=== PATIENT | male | born 1955 | race Hispanic/Latino ===

== ENCOUNTER 2017-02-18 08:42 | Inpatient (IN) | payer MEDICAID, OTHER ==
[2017-02-18] MEDS ORDERED: Albuterol-Ipratrop 3 mg / 0.5 (3 ml) UD ONE (08:52)
[2017-02-18] MEDS ORDERED: Albuterol 0.083% Inhal Sol (2.5 mg/3 mL) UD INH STA (09:37)
[2017-02-18] MEDS ORDERED: Albuterol-Ipratrop 3 mg / 0.5 (3 ml) UD INH STA ×2 (09:38→10:01)
[2017-02-18 09:59] LABS: ABG ALLEN TEST YES; ARTERIAL BLOOD GAS HCO3 28.5 mmol/L (21-28); ARTERIAL BLOOD GAS HEMOGLOBIN 17.5 g/dL (11.7-17.4); ARTERIAL BLOOD GAS O2 CAPACITY 22.7 mL/dL (16-24); ARTERIAL BLOOD GAS O2 CONTENT 21.1 ML/dL (15-23); ARTERIAL BLOOD GAS O2 SAT 93.1 % (95-98); ARTERIAL BLOOD GAS PCO2 51 mm/Hg (35-45); ARTERIAL BLOOD GAS PO2 56 mm/Hg (80-100); ARTERIAL BLOOD GAS TCO2 33.2 mmol/L (22-28)
[2017-02-18 10:02] LABS: VENOUS BLOOD GAS BASE EXCESS 6.9 mmol/L (0.0-2.0); VENOUS BLOOD GAS PCO2 69 mmHg (40-60); VENOUS BLOOD GAS PO2 19 mm/Hg (30-55); VENOUS BLOOD PH 7.33 (7.32-7.43)
[2017-02-18 10:07] LABS: BASO % 0.2 % (0.0-2.0); EOS # 0.2 K/uL (0.0-0.7); EOS % 2.8 % (0.0-4.0); LYMPH # 0.7 K/uL (1.0-4.3); LYMPH % 10.2 % (20.0-40.0); MEAN CELL VOLUME 97.4 fl (80.0-94.0); MEAN CORPUSCULAR HEMOGLOBIN 32.8 pg (27.0-31.0); MEAN CORPUSCULAR HGB CONC 33.7 g/dL (33.0-37.0); MEAN PLATELET VOLUME 9.7 fl (7.2-11.7); MONO # 0.8 K/uL (0.0-0.8); MONO % 12.3 % (0.0-10.0); NEUT # 5.1 K/uL (1.8-7.0); NEUT % 74.5 % (50.0-75.0); NRBC % 0.2 % (0.0-0.0); RBC 5.21 Mil/uL (4.40-5.90); RED CELL DISTRIBUTION WIDTH 14.4 % (11.5-14.5); WHITE BLOOD COUNT 6.9 K/uL (4.8-10.8)
[2017-02-18 10:08] LABS: BLOOD UREA NITROGEN 4 mg/dl (9-20); CALCIUM 9.2 mg/dL (8.4-10.2); GFR AFRICAN-AMERICAN > 60; GFR NON-AFRICAN AMERICAN > 60
[2017-02-18 10:11] LABS: HEMOGLOBIN 17.1 g/dL (12.0-18.0)
[2017-02-18 10:29] LABS: B-TYPE NATRIURETIC PEPTIDE 342 pg/ml (0-900)
--- NOTE | 2017-02-18 10:59 | ED PDOC ---
HPI: SOB/CHF/COPD Time Seen by Provider: 02/18/17 09:07 Chief Complaint (Nursing): Shortness Of Breath Chief Complaint (Provider): Difficulty Breathing History Per: Patient History/Exam Limitations: no limitations Onset/Duration Of Symptoms: Days, Worse Since Current Symptoms Are (Timing): Still Present Initiating Event: Out Of Medications Associated Symptoms: denies: Fever, Chest Pain Additional Complaint(s): 61 year old male with a past medical history of asthma, pneumonia and bronchitis presents to the ED complaining of difficulty breathing which has been on going for a few days. The patient states that he has also been experiencing shortness of breath associated with cough productive of yellow sputum. The patient states that he does not have any medication because he ran out and he has been unable to visit his PMD. Denies chest pain, fever. Past Medical History Reviewed: Historical Data, Nursing Documentation, Vital Signs Vital Signs: Last Vital Signs Temp 98.3 F 02/19/17 08:00 Pulse 62 02/19/17 08:00 Resp 12 02/19/17 08:00 BP 116/48 L 02/19/17 08:00 Pulse Ox 93 L 02/19/17 10:01 - Medical History PMH: Asthma, Bronchitis, Hiatal Hernia (inguinal), Pneumonia Denies: Chronic Kidney Disease - Surgical History Surgical History: Hernia Repair - Family History Family History: States: Unknown Family Hx - Social History Current smoker - smoking cessation education provided: Yes (Heavy Smoker > 10 Cigarettes Daily) Alcohol: Social - Immunization History Hx Tetanus Toxoid Vaccination: No Hx Influenza Vaccination: No Hx Pneumococcal Vaccination: No - Home Medications Home Medications: Ambulatory Orders Medication Instructions Recorded No Known Home Med 02/18/17 - Allergies Allergies/Adverse Reactions: Allergies Allergy/AdvReac Type Severity Reaction Status Date / Time Penicillins Allergy RASH Verified 02/18/17 08:48 Review of Systems ROS Statement: Except As Marked, All Systems Reviewed And Found Negative Constitutional: Negative for: Fever Cardiovascular: Negative for: Chest Pain Respiratory: Positive for: Shortness of Breath, Other (difficulty breathing) Physical Exam - Reviewed Nursing Documentation Reviewed: Yes Vital Signs Reviewed: Yes - Physical Exam Appears: Positive for: Non-toxic, Uncomfortable Head Exam: Positive for: ATRAUMATIC, NORMAL INSPECTION Skin: Positive for: Normal Color, Warm, Dry. Negative for: Rash Eye Exam: Positive for: Normal appearance, EOMI, PERRL. Negative for: Nystagmus ENT: Positive for: Normal ENT Inspection Neck: Positive for: Normal, Painless ROM, Supple Cardiovascular/Chest: Positive for: Regular Rate, Rhythm, Tachycardia Respiratory: Positive for: Accessory Muscle Use, Wheezing, Respiratory Distress. Negative for: Normal Breath Sounds Gastrointestinal/Abdominal: Positive for: Normal Exam, Bowel Sounds, Soft, Hernia (small right inguinal hernia soft and reducible ). Negative for: Tenderness, Guarding, Rebound Back: Positive for: Normal Inspection. Negative for: L CVA Tenderness, R CVA Tenderness Extremity: Positive for: Normal ROM. Negative for: Tenderness, Deformity, Swelling Neurologic/Psych: Positive for: Alert, Oriented - Laboratory Results Result Diagrams: 02/19/17 05:20 02/19/17 05:20 - ECG O2 Sat by Pulse Oximetry: 93 (RA) Pulse Ox Interpretation: Normal - Progress Re-evaluation Time: 11:15 Condition: Re-examined, Improving,but remains with symptoms - Critical Care Total Time (In Min): 120 Nebulizer Treatments/Peak Flow - Duonebs Number of Bronchodilator Doses given?: 3 - Steroid Treatment Steroid: IV - Clinical Response Clinical Response: Unchanged Medical Decision Making Medical Decision Makin Initial Impression 61 y/o male presenting with COPD Exacerbation Differential: Pneumonia, CHF less likely acute coronary syndrome Initial Plan: * ABG * VBG Shock Panel * CT w/o Contrast CT * Chest w/o Contrast * EKG * Alcohol Serum * BNP * BMP * Troponin * CBC * chest x-ray * Albuterol 3ml INH * Albuterol 2.5m INH * Solumedrol 125mg IVP * Blood Culture * Bipap Procedure * Reevaluation 1045 Xray performed significant for left sided pneumothorax. Case discussed with Dr. Bonilla and director surgical for chest tube placement. Dr. Bonilla is requesting CT chest prior to chest tube 1105 administration vice president at bedside. 1126 PROCEDURE: CT Chest without contrast FINDINGS: LUNGS: Extensive bilateral emphysema with large left apical bullae. Lingular atelectasis. Left lower lobe atelectasis and patchy consolidations. MEDIASTINUM: Mild rightward mediastinal shift. Unremarkable thoracic aorta. No aneurysm. Normal sized heart. Main pulmonary artery unremarkable. No vascular congestion. No lymphadenopathy. PLEURA: Very large left pneumothorax. No pleural fluid. BONES: No fracture. No destructive lesion. UPPER ABDOMEN: Grossly unremarkable. OTHER FINDINGS: None. IMPRESSION: Very large left pneumothorax, possibly from ruptured bulla, causing mild rightward mediastinal shift. Lingula and left lower lobe atelectasis with patchy left lower lobe consolidations. Findings conveyed to Dr. Guerrero by Dr. Cedeño at 11:20 a.m. on 02/18/2017. Chest tube placed by director surgical see note. 1140 PROCEDURE: CHEST RADIOGRAPH HISTORY: dyspnea COMPARISON: Chest radiograph dated 03/08/2014. FINDINGS: LUNGS: Left apical bullous change. Left upper and lower lobe atelectasis. PLEURA: Large left pneumothorax. CARDIOVASCULAR: Normal. OSSEOUS STRUCTURES: Unchanged. VISUALIZED UPPER ABDOMEN: Normal. OTHER FINDINGS: None. IMPRESSION: Large left pneumothorax. At the time of this dictation, a CT scan of the chest had already been performed. 1130 Dr. Pan mailing machine helper agrees with admission at this time. Patient will be admitted under [facility]. [address] Marquez concerning case for COPD and pneumothorax. 1245 Xray reviewed after chest tube placement shows resolution of pneumothorax with tube in correct location. Documented by Lesly Estrada acting as a scribe for Deb Guerrero MD. All medical record entries made by the Scribe were at my direction and personally dictated by me. I have reviewed the chart and agree that the record accurately reflects my personal performance of the history, physical exam, medical decision making, and the department course for this patient. I have also personally directed, reviewed, and agree with the discharge instructions and disposition. Disposition - Clinical Impression Clinical Impression: Pneumothorax, COPD (chronic obstructive pulmonary disease), Alcohol abuse, Homelessness - Patient ED Disposition Is Patient to be Admitted: Yes Discussed With : Arlen Flores Doctor Will See Patient In The: ED Counseled Patient/Family Regarding: Studies Performed, Diagnosis - Disposition Disposition Time: 11:36 Condition: GUARDED - Pt Status Changed To: Hospital Disposition Of: Inpatient - Admit Certification Admit to Inpatient:: After my assessment, the patient will require hospitalization for at least two midnights. This is because of the severity of symptoms shown, intensity of services needed, and/or the medical risk in this patient being treated as an outpatient. - POA Present On Arrival: None
[2017-02-18] MEDS ORDERED: Lidocaine 1% Inj (20ml) IJ ONE (11:28)
--- NOTE | 2017-02-18 11:28 | CT ---
PROCEDURE: CT Chest without contrast HISTORY: dyspnea pneumothorax COMPARISON: Correlations made to chest radiograph performed earlier the same day. TECHNIQUE: Contiguous axial images were obtained through the chest without intravenous contrast enhancement. Sagittal and coronal reconstructions were performed. Radiation dose (DLP): 402 mGy-cm. This CT exam was performed using one or more of the following dose reduction techniques: Automated exposure control, adjustment of the mA and/or kV according to patient size, and/or use of iterative reconstruction technique. FINDINGS: LUNGS: Extensive bilateral emphysema with large left apical bullae. Lingular atelectasis. Left lower lobe atelectasis and patchy consolidations. MEDIASTINUM: Mild rightward mediastinal shift. Unremarkable thoracic aorta. No aneurysm. Normal sized heart. Main pulmonary artery unremarkable. No vascular congestion. No lymphadenopathy. PLEURA: Very large left pneumothorax. No pleural fluid. BONES: No fracture. No destructive lesion. UPPER ABDOMEN: Grossly unremarkable. OTHER FINDINGS: None. IMPRESSION: Very large left pneumothorax, possibly from ruptured bulla, causing mild rightward mediastinal shift. Lingula and left lower lobe atelectasis with patchy left lower lobe consolidations. Findings conveyed to Dr. Guerrero by Dr. Cedeño at 11:20 a.m. on 02/18/2017.
[2017-02-18] MEDS ORDERED: levoFLOXacin 750 mg in D5W 750 MG/150 ML BAG IVPB STA (11:31)
[2017-02-18] MEDS ORDERED: Povidone Iodine Topical 10% Sol ONE (11:39)
--- NOTE | 2017-02-18 11:42 | RAD ---
PROCEDURE: CHEST RADIOGRAPH, 1 VIEW HISTORY: dyspnea COMPARISON: Chest radiograph dated 03/08/2014. FINDINGS: LUNGS: Left apical bullous change. Left upper and lower lobe atelectasis. PLEURA: Large left pneumothorax. CARDIOVASCULAR: Normal. OSSEOUS STRUCTURES: Unchanged. VISUALIZED UPPER ABDOMEN: Normal. OTHER FINDINGS: None. IMPRESSION: Large left pneumothorax. At the time of this dictation, a CT scan of the chest had already been performed.
[2017-02-18] MEDS ORDERED: Morphine 4 MG/ML VIAL ONE (12:00)
[2017-02-18] MEDS ORDERED: Morphine 4 MG/ML VIAL IVP ONE (12:00)
[2017-02-18] MEDS ORDERED: levoFLOXacin 750 mg in D5W 750 MG/150 ML BAG IVPB ONE (12:27)
--- NOTE | 2017-02-18 12:48 | CP.PCM.CON ---
History of Present Illness - History of Present Illness History of Present Illness: Cardiothoracic Surgery Consult Note For Dr. Bonilla This 61M with a PMH of COPD, Polysubstance Abuse, Ethanolism, presents with a 2 day history of Left sided chest pain and SOB. In the ED pt had a CXR significant for a large pneumothorax, in the ED pt had a CT Chest significant for left sided lung blebs and a roughly 70% pneumothorax, with minimal tension. Pts HR 100+ , saturations <85. Decision was made to place a bedside chestube. The risks vs benefits were discussed with the patient and he consented to a chest tube. PMHx: Asthma, PVD PSHx: Right inguinal hernia repair (2014) Allergies: Penicillin Meds: None Family Hx: unknown as per patient Social Hx: Daily drinker, Tobacco use 3 PPD history since age 22. Reports history of IVDA. Review of Systems - Review of Systems All systems: reviewed and no additional remarkable complaints except - Cardiovascular Cardiovascular: Chest Pain, Dyspnea - Respiratory Respiratory: Dyspnea, Pain on Inspiration, Pain with Coughing Past Patient History - Infectious Disease Hx of Infectious Diseases: None - Tetanus Immunizations Tetanus Immunization: Unknown - Past Medical History & Family History Past Medical History?: Yes - Past Social History Alcohol: Social - CARDIAC Hx Cardiac Disorders: No - PULMONARY Hx Asthma: Yes Hx Bronchitis: Yes Hx Pneumonia: Yes - NEUROLOGICAL Hx Neurological Disorder: No - HEENT Hx HEENT Problems: No - RENAL Hx Chronic Kidney Disease: No - ENDOCRINE/METABOLIC Hx Endocrine Disorders: No - HEMATOLOGICAL/ONCOLOGICAL Hx Blood Disorders: No - INTEGUMENTARY Hx Dermatological Problems: No - MUSCULOSKELETAL/RHEUMATOLOGICAL Hx Musculoskeletal Disorders: No Hx Falls: No - GASTROINTESTINAL Hx Gastrointestinal Disorders: Yes - GENITOURINARY/GYNECOLOGICAL Hx Genitourinary Disorders: Yes (inguinal hernia) - PSYCHIATRIC Hx Psychophysiologic Disorder: Yes (etoh abuse) Hx Substance Use: Yes (drug user 5 years ago; denies using drugs now) - SURGICAL HISTORY Hx Surgeries: Yes Hx Herniorrhaphy: Yes (2005; 02/2014 right inguinal hernia reduction/repair with mesh) - ANESTHESIA Hx Anesthesia: Yes Hx Anesthesia Reactions: No Hx Malignant Hyperthermia: No Meds Allergies/Adverse Reactions: Allergies Allergy/AdvReac Type Severity Reaction Status Date / Time Penicillins Allergy RASH Verified 02/18/17 08:48 - Medications Medications: Current Medications Levofloxacin/Dextrose (Levaquin 750mg) 750 mg in 150 mls @ 100 mls/hr IVPB STAT STA PRN Reason: Protocol Stop: 02/18/17 13:00 Last Admin: 02/18/17 12:27 Dose: 100 mls/hr Physical Exam - Constitutional Appears: Non-toxic - Head Exam Head Exam: NORMAL INSPECTION - Eye Exam Eye Exam: EOMI - ENT Exam ENT Exam: Mucous Membranes Moist Additional comments: poor dentition - Neck Exam Additional comments: No tracheal deviation noted - Respiratory Exam Additional comments: Decreased left sided breath sounds - Cardiovascular Exam Cardiovascular Exam: Tachycardia, REGULAR RHYTHM - GI/Abdominal Exam GI & Abdominal Exam: Soft Results - Vital Signs Recent Vital Signs: Last Vital Signs Temp 98.6 F 02/18/17 12:41 Pulse 66 02/18/17 12:41 Resp 18 02/18/17 12:41 BP 135/68 02/18/17 12:41 Pulse Ox 93 L 02/18/17 12:41 - Labs Result Diagrams: 02/18/17 09:50 02/18/17 09:50 Labs: Laboratory Results - last 24 hr 02/18/17 02/18/17 02/18/17 09:44 09:44 09:50 WBC RBC Hgb Hct MCV MCH MCHC RDW Plt Count MPV Neut % (Auto) Lymph % (Auto) [place] % (Auto) Eos % (Auto) Baso % (Auto) Neut # Lymph # [place] # Eos # Baso # pCO2 51 H pO2 56 L 19 L HCO3 28.5 H ABG pH 7.40 ABG Total CO2 33.2 H ABG O2 Saturation 93.1 L ABG O2 Content 21.1 ABG Base Excess 5.1 H ABG Hemoglobin 17.5 H ABG Carboxyhemoglobin 5.4 H POC ABG HHb (Measured) 6.4 H ABG Methemoglobin 2.1 ABG O2 Capacity 22.7 Tone Test Yes VBG pH 7.33 VBG pCO2 69 H* VBG HCO3 28.0 VBG Total CO2 38.5 H VBG O2 Sat (Calc) 37.7 L VBG Base Excess 6.9 H VBG Potassium 5.3 H A-a O2 Difference 94.0 109.0 Hgb O2 Saturation 86.1 L Sodium 132.0 130 L Chloride 92.0 L 92 L Glucose 146 H Lactate 1.7 Liter Flow 3 FiO2 30.0 30.0 Blood Gas Comments 3l/m nc,rb 3l, nc Crit Value Called To Kelsie lawrence Crit Value Called By 15 Crit Value Read Back Y Blood Gas Notified Time 1010 Potassium 4.3 Carbon Dioxide 31 H Anion Gap 11 BUN 4 L Creatinine 0.6 L Est GFR ( Amer) > 60 Est GFR (Non-Af Amer) > 60 Random Glucose 136 H Calcium 9.2 Troponin I NT-Pro-B Natriuret Pep Venous Blood Potassium 5.3 H Alcohol, Quantitative < 10 02/18/17 02/18/17 09:50 10:03 WBC 6.9 RBC 5.21 Hgb 17.1 D Hct 50.8 MCV 97.4 H D MCH 32.8 H MCHC 33.7 RDW 14.4 Plt Count 222 MPV 9.7 Neut % (Auto) 74.5 Lymph % (Auto) 10.2 L [place] % (Auto) 12.3 H Eos % (Auto) 2.8 Baso % (Auto) 0.2 Neut # 5.1 Lymph # 0.7 L [place] # 0.8 Eos # 0.2 Baso # 0.0 pCO2 pO2 HCO3 ABG pH ABG Total CO2 ABG O2 Saturation ABG O2 Content ABG Base Excess ABG Hemoglobin ABG Carboxyhemoglobin POC ABG HHb (Measured) ABG Methemoglobin ABG O2 Capacity Tone Test VBG pH VBG pCO2 VBG HCO3 VBG Total CO2 VBG O2 Sat (Calc) VBG Base Excess VBG Potassium A-a O2 Difference Hgb O2 Saturation Sodium Chloride Glucose Lactate Liter Flow FiO2 Blood Gas Comments Crit Value Called To Crit Value Called By Crit Value Read Back Blood Gas Notified Time Potassium Carbon Dioxide Anion Gap BUN Creatinine Est GFR ( Amer) Est GFR (Non-Af Amer) Random Glucose Calcium Troponin I < 0.0120 NT-Pro-B Natriuret Pep 342 Venous Blood Potassium Alcohol, Quantitative Assessment & Plan - Assessment and Plan (Free Text) Assessment: 61M with tension pneumothorax s/p left chest tube placement Lung Expanded Keep Pleurovac on suction Daily CXR OK to use positive pressure Discuss with Dr. Irene Sutherland PGY2
--- NOTE | 2017-02-18 13:03 | PCM.PROC ---
Procedures Attestation:: I certify that I have explained the specified Operation(s) or Procedure(s), risks, benefits and reasonable alternatives to the Patient and/or other person responsible. The opportunity was given to ask questions and all questions answered - Chest Tube Chest Tube Location: Mid-Axillary Left Size of Tube (cm): 28 Chest Tube Procedure: Povidone-Iodine 1% Tube Sutured to Skin: Yes Sterile Dressing Applied: Yes Anesthesia: Lidocaine 1% Volume Anesthetic (mls): 15 Incision Made With: other (#15 Blade) Post Procedure: sutured to skin, sterile dressing applied [place]vert of Air [place]: Yes Tube Drainage: none Post Procedure CXR?: Yes Patient Tolerated Procedure: Yes
--- NOTE | 2017-02-18 13:21 | CP.PCM.HP ---
<Alanna Morrell - Last Filed: 02/18/17 15:39> History of Present Illness - History of Present Illness History of Present Illness: Pt is a 61 year old male with PMH COPD,emphysema, polysubstance abuse, noncompliance with medication, homelessness presented to the ED with 2 days duration worsening shortness of breath and left sided chest pain/discomfort. No fevers, no coughing up blood or sputum. Was found to have a left sided pneumothorax on CXR and Chest CT. PCP: [facility], last visit 04/2016 PMH: COPD, polysubstance abuse Surg hx: bilateral inguinal hernia repair Family hx: pt is unable to contribute, unknown Social hx: 1-3 ppd smoker for over 20 yrs, drinks half a bottle to bottle of wine per day, hx of IV drug abuse but denies at this time Allergies: penicillin ED course: 125 mg IVP methylprednisone Duonebs x2 levofloxacin 750 mg x1 CXR: large left pneumothorax Chest CT: very large left pneumothorax, possibly from ruptured bulla, causing mild rightward mediastinal shift. Lingula and left lower lobe atelectasis with patchy left lower lobe consolidations. Chest Tube placement in ED by general surgery Repeat CXR done in ED showed re-expansion of left lung with patchy atelectasis/ infiltrate at left base. Present on Admission - Present on Admission Any Indicators Present on Admission: No Review of Systems - Review of Systems All systems: reviewed and no additional remarkable complaints except - Respiratory Respiratory: Dyspnea Past Patient History - Infectious Disease Hx of Infectious Diseases: None - Tetanus Immunizations Tetanus Immunization: Unknown - Past Medical History & Family History Past Medical History?: Yes - Past Social History Smoking Status: Heavy Smoker > 10 Cigarettes Daily Alcohol: Social Drugs: Denies, Other (history of IV drug abuse) Home Situation {Lives}: Homeless - CARDIAC Hx Cardiac Disorders: No - PULMONARY Hx Asthma: Yes Hx Bronchitis: Yes Hx Pneumonia: Yes - NEUROLOGICAL Hx Neurological Disorder: No - HEENT Hx HEENT Problems: No - RENAL Hx Chronic Kidney Disease: No - ENDOCRINE/METABOLIC Hx Endocrine Disorders: No - HEMATOLOGICAL/ONCOLOGICAL Hx Blood Disorders: No - INTEGUMENTARY Hx Dermatological Problems: No - MUSCULOSKELETAL/RHEUMATOLOGICAL Hx Musculoskeletal Disorders: No Hx Falls: No - GASTROINTESTINAL Hx Gastrointestinal Disorders: Yes - GENITOURINARY/GYNECOLOGICAL Hx Genitourinary Disorders: Yes (inguinal hernia) - PSYCHIATRIC Hx Psychophysiologic Disorder: Yes (etoh abuse) Hx Substance Use: Yes (drug user 5 years ago; denies using drugs now) - SURGICAL HISTORY Hx Surgeries: Yes Hx Herniorrhaphy: Yes (2005/; 02/2014 right inguinal hernia reduction/repair with mesh) - ANESTHESIA Hx Anesthesia: Yes Hx Anesthesia Reactions: No Hx Malignant Hyperthermia: No Meds Allergies/Adverse Reactions: Allergies Allergy/AdvReac Type Severity Reaction Status Date / Time Penicillins Allergy RASH Verified 02/18/17 08:48 Physical Exam - Constitutional Appears: Unkempt, Cachectic - Head Exam Head Exam: NORMOCEPHALIC - Eye Exam Eye Exam: EOMI - Neck Exam Neck exam: Positive for: Normal Inspection. Negative for: Lymphadenopathy - Respiratory Exam Respiratory Exam: Decreased Breath Sounds, Rhonchi Additional comments: coarse breath sounds/rhonchi over left hemithorax clearer breath sounds, but mild wheezing present over right hemithorax - Cardiovascular Exam Cardiovascular Exam: +S1, +S2 - GI/Abdominal Exam GI & Abdominal Exam: Normal Bowel Sounds, Soft - Extremities Exam Extremities exam: Negative for: calf tenderness, pedal edema - Neurological Exam Neurological exam: Alert - Skin Skin Exam: Normal Color, Warm Results - Vital Signs Recent Vital Signs: Last Vital Signs Temp 98.6 F 02/18/17 12:41 Pulse 66 02/18/17 12:41 Resp 18 02/18/17 12:41 BP 135/68 02/18/17 12:41 Pulse Ox 93 L 02/18/17 12:45 - Labs Result Diagrams: 02/18/17 09:50 02/18/17 09:50 Labs: Laboratory Results - last 24 hr 02/18/17 02/18/17 02/18/17 09:44 09:44 09:50 WBC RBC Hgb Hct MCV MCH MCHC RDW Plt Count MPV Neut % (Auto) Lymph % (Auto) [place] % (Auto) Eos % (Auto) Baso % (Auto) Neut # Lymph # [place] # Eos # Baso # pCO2 51 H pO2 56 L 19 L HCO3 28.5 H ABG pH 7.40 ABG Total CO2 33.2 H ABG O2 Saturation 93.1 L ABG O2 Content 21.1 ABG Base Excess 5.1 H ABG Hemoglobin 17.5 H ABG Carboxyhemoglobin 5.4 H POC ABG HHb (Measured) 6.4 H ABG Methemoglobin 2.1 ABG O2 Capacity 22.7 Tone Test Yes VBG pH 7.33 VBG pCO2 69 H* VBG HCO3 28.0 VBG Total CO2 38.5 H VBG O2 Sat (Calc) 37.7 L VBG Base Excess 6.9 H VBG Potassium 5.3 H A-a O2 Difference 94.0 109.0 Hgb O2 Saturation 86.1 L Sodium 132.0 130 L Chloride 92.0 L 92 L Glucose 146 H Lactate 1.7 Liter Flow 3 FiO2 30.0 30.0 Blood Gas Comments 3l/m nc,rb 3l, nc Crit Value Called To Kelsie lawrence Crit Value Called By 15 Crit Value Read Back Y Blood Gas Notified Time 1010 Potassium 4.3 Carbon Dioxide 31 H Anion Gap 11 BUN 4 L Creatinine 0.6 L Est GFR ( Amer) > 60 Est GFR (Non-Af Amer) > 60 Random Glucose 136 H Calcium 9.2 Troponin I NT-Pro-B Natriuret Pep Venous Blood Potassium 5.3 H Alcohol, Quantitative < 10 02/18/17 02/18/17 09:50 10:03 WBC 6.9 RBC 5.21 Hgb 17.1 D Hct 50.8 MCV 97.4 H D MCH 32.8 H MCHC 33.7 RDW 14.4 Plt Count 222 MPV 9.7 Neut % (Auto) 74.5 Lymph % (Auto) 10.2 L [place] % (Auto) 12.3 H Eos % (Auto) 2.8 Baso % (Auto) 0.2 Neut # 5.1 Lymph # 0.7 L [place] # 0.8 Eos # 0.2 Baso # 0.0 pCO2 pO2 HCO3 ABG pH ABG Total CO2 ABG O2 Saturation ABG O2 Content ABG Base Excess ABG Hemoglobin ABG Carboxyhemoglobin POC ABG HHb (Measured) ABG Methemoglobin ABG O2 Capacity Tone Test VBG pH VBG pCO2 VBG HCO3 VBG Total CO2 VBG O2 Sat (Calc) VBG Base Excess VBG Potassium A-a O2 Difference Hgb O2 Saturation Sodium Chloride Glucose Lactate Liter Flow FiO2 Blood Gas Comments Crit Value Called To Crit Value Called By Crit Value Read Back Blood Gas Notified Time Potassium Carbon Dioxide Anion Gap BUN Creatinine Est GFR ( Amer) Est GFR (Non-Af Amer) Random Glucose Calcium Troponin I < 0.0120 NT-Pro-B Natriuret Pep 342 Venous Blood Potassium Alcohol, Quantitative Assessment & Plan - Assessment and Plan (Free Text) Assessment: 61 yo M with hx COPD admitted for large left sided pneumothorax. Plan: 1) Left-sided Pneumothorax -Admit to ICU -Seen on Chest CT and CXR done in ED -General Surg consult, left sided chest tube placed in ED -Repeat CXR done in ED showed re-expansion of left lung with patchy atelectasis/ infiltrate at left base -Pulmonology consult -repeat ABG today -Repeat CXR tomorrow -Morphine 2mg PRN -F/u CBC, CMP 2) COPD exacerbation -S/p 125 mg methylprednisone in ED -Duonebs Q4 PRN 3) Infiltrates at left lung base -Levofloxacin 750 mg daily -Procalcitonin pending 3) DVT prophylaxis -SCD <Zakia Walker - Last Filed: 02/19/17 12:11> Results - Vital Signs Recent Vital Signs: Last Vital Signs Temp 98.3 F 02/19/17 08:00 Pulse 56 L 02/19/17 10:00 Resp 19 02/19/17 10:00 BP 110/77 02/19/17 10:00 Pulse Ox 93 L 02/19/17 10:02 - Labs Result Diagrams: 02/19/17 05:20 02/19/17 05:20 Labs: Laboratory Results - last 24 hr 02/18/17 02/18/17 02/18/17 14:48 16:59 18:51 WBC RBC Hgb Hct MCV MCH MCHC RDW Plt Count MPV Neut % (Auto) Lymph % (Auto) [place] % (Auto) Eos % (Auto) Baso % (Auto) Neut # Lymph # [place] # Eos # Baso # pCO2 57 H pO2 80 HCO3 28.5 H ABG pH 7.36 ABG Total CO2 33.9 H ABG O2 Saturation 97.6 ABG O2 Content 21.0 ABG Base Excess 4.8 H ABG Hemoglobin 15.9 ABG Carboxyhemoglobin 2.7 H POC ABG HHb (Measured) 2.3 ABG Methemoglobin 1.3 ABG O2 Capacity 21.5 Tone Test Yes A-a O2 Difference 562.0 Hgb O2 Saturation 93.7 L FiO2 100.0 Sodium Potassium Chloride Carbon Dioxide Anion Gap BUN Creatinine Est GFR ( Amer) Est GFR (Non-Af Amer) Random Glucose Calcium Total Bilirubin AST ALT Alkaline Phosphatase NT-Pro-B Natriuret Pep Total Protein Albumin Globulin Albumin/Globulin Ratio Urine Opiates Screen Positive H Urine Methadone Screen Negative Ur Barbiturates Screen Negative Ur Phencyclidine Scrn Negative Ur Amphetamines Screen Negative U Benzodiazepines Scrn Negative U Oth Cocaine Metabols Negative U Cannabinoids Screen Negative Influenza Typ A,B (EIA) Negative for flu a/b 02/19/17 02/19/17 05:20 05:20 WBC 5.8 RBC 4.60 Hgb 15.0 D Hct 45.3 MCV 98.5 H MCH 32.7 H MCHC 33.2 RDW 14.2 Plt Count 177 MPV 8.9 Neut % (Auto) 73.4 Lymph % (Auto) 10.3 L [place] % (Auto) 15.9 H Eos % (Auto) 0.1 Baso % (Auto) 0.3 Neut # 4.3 Lymph # 0.6 L [place] # 0.9 H Eos # 0.0 Baso # 0.0 pCO2 pO2 HCO3 ABG pH ABG Total CO2 ABG O2 Saturation ABG O2 Content ABG Base Excess ABG Hemoglobin ABG Carboxyhemoglobin POC ABG HHb (Measured) ABG Methemoglobin ABG O2 Capacity Tone Test A-a O2 Difference Hgb O2 Saturation FiO2 Sodium 133 Potassium 4.1 Chloride 95 L Carbon Dioxide 37 H Anion Gap 5 L BUN 9 Creatinine 0.8 Est GFR ( Amer) > 60 Est GFR (Non-Af Amer) > 60 Random Glucose 103 Calcium 9.0 Total Bilirubin 0.5 AST 37 ALT 46 Alkaline Phosphatase 71 NT-Pro-B Natriuret Pep 227 Total Protein 6.6 Albumin 3.5 Globulin 3.1 Albumin/Globulin Ratio 1.2 Urine Opiates Screen Urine Methadone Screen Ur Barbiturates Screen Ur Phencyclidine Scrn Ur Amphetamines Screen U Benzodiazepines Scrn U Oth Cocaine Metabols U Cannabinoids Screen Influenza Typ A,B (EIA) Attending/Attestation - Attestation I have personally seen and examined this patient.: Yes I have fully participated in the care of the patient.: Yes I have reviewed all pertinent clinical information: Yes Notes (Text): 02/19/17 12:10 Attending note - Attestation Patient seen and examined. Case discussed with resident. Agree with plan and findings.
[2017-02-18] MEDS ORDERED: Albuterol-Ipratrop 3 mg / 0.5 (3 ml) UD INH PRN (13:22)
--- NOTE | 2017-02-18 13:25 | CP.PCM.CON ---
History of Present Illness - History of Present Illness History of Present Illness: 61 y/o male with pmx of extensive smoking tobacco with h/o emphysematous COPD presents to [facility] with spontaneous pneumothorax after coughing. Patient had chest tube placed by surgery team. ABG reveals no signs of Co2 retention. Patient (+) REYNA symptoms denies any chest pain, denies any abdominal pain h/o smoking, h/o polysubstance abuse Review of Systems - Review of Systems Systems not reviewed;Unavailable: Respiratory Distress - Constitutional Constitutional: absent: Chills, Fever, Lethargy - EENT Eyes: absent: Blurred Vision Nose/Mouth/Throat: Nasal Congestion, Post Nasal Drip, Sore Throat - Cardiovascular Cardiovascular: Dyspnea on Exertion. absent: Chest Pain, Chest Pain with Activity - Respiratory Respiratory: Cough, Dyspnea, Dyspnea on Exertion. absent: Hemoptysis, Wheezing - Gastrointestinal Gastrointestinal: absent: Abdominal Pain, Constipation, Diarrhea Past Patient History - Infectious Disease Hx of Infectious Diseases: None - Tetanus Immunizations Tetanus Immunization: Unknown - Past Medical History & Family History Past Medical History?: Yes - Past Social History Smoking Status: Current Some Days Smoker Alcohol: Social - CARDIAC Hx Cardiac Disorders: No - PULMONARY Hx Asthma: Yes Hx Bronchitis: Yes Hx Pneumonia: Yes - NEUROLOGICAL Hx Neurological Disorder: No - HEENT Hx HEENT Problems: No - RENAL Hx Chronic Kidney Disease: No - ENDOCRINE/METABOLIC Hx Endocrine Disorders: No - HEMATOLOGICAL/ONCOLOGICAL Hx Blood Disorders: No - INTEGUMENTARY Hx Dermatological Problems: No - MUSCULOSKELETAL/RHEUMATOLOGICAL Hx Musculoskeletal Disorders: No Hx Falls: No - GASTROINTESTINAL Hx Gastrointestinal Disorders: Yes - GENITOURINARY/GYNECOLOGICAL Hx Genitourinary Disorders: Yes (inguinal hernia) - PSYCHIATRIC Hx Psychophysiologic Disorder: Yes (etoh abuse) Hx Substance Use: Yes (drug user 5 years ago; denies using drugs now) - SURGICAL HISTORY Hx Surgeries: Yes Hx Herniorrhaphy: Yes (2005/; 02/2014 right inguinal hernia reduction/repair with mesh) - ANESTHESIA Hx Anesthesia: Yes Hx Anesthesia Reactions: No Hx Malignant Hyperthermia: No Meds Allergies/Adverse Reactions: Allergies Allergy/AdvReac Type Severity Reaction Status Date / Time Penicillins Allergy RASH Verified 02/18/17 08:48 - Medications Medications: Current Medications Albuterol/Ipratropium (Duoneb 3 Mg/0.5 Mg (3 Ml) Ud) 3 ml INH RQ4 PRN PRN Reason: Shortness of Breath Morphine Sulfate (Morphine) 4 mg IVP Q4H PRN PRN Reason: Pain, severe (8-10) Morphine Sulfate (Morphine) 2 mg IVP Q4H PRN PRN Reason: Pain, moderate (4-7) Physical Exam - Constitutional Appears: No Acute Distress - Head Exam Head Exam: ATRAUMATIC, NORMAL INSPECTION, NORMOCEPHALIC - Eye Exam Eye Exam: Normal appearance Pupil Exam: NORMAL ACCOMODATION - Respiratory Exam Respiratory Exam: Clear to Auscultation Bilateral, Rhonchi, Wheezes, NORMAL BREATHING PATTERN. absent: Respiratory Distress - Cardiovascular Exam Cardiovascular Exam: REGULAR RHYTHM, +S1, +S2 - GI/Abdominal Exam GI & Abdominal Exam: Normal Bowel Sounds - Back Exam Back exam: NORMAL INSPECTION. absent: CVA tenderness (L) Results - Vital Signs Recent Vital Signs: Last Vital Signs Temp 98.6 F 02/18/17 12:41 Pulse 66 02/18/17 12:41 Resp 18 02/18/17 12:41 BP 135/68 02/18/17 12:41 Pulse Ox 93 L 02/18/17 12:45 - Labs Result Diagrams: 02/18/17 09:50 02/18/17 09:50 Labs: Laboratory Results - last 24 hr 02/18/17 02/18/17 02/18/17 09:44 09:44 09:50 WBC RBC Hgb Hct MCV MCH MCHC RDW Plt Count MPV Neut % (Auto) Lymph % (Auto) [place] % (Auto) Eos % (Auto) Baso % (Auto) Neut # Lymph # [place] # Eos # Baso # pCO2 51 H pO2 56 L 19 L HCO3 28.5 H ABG pH 7.40 ABG Total CO2 33.2 H ABG O2 Saturation 93.1 L ABG O2 Content 21.1 ABG Base Excess 5.1 H ABG Hemoglobin 17.5 H ABG Carboxyhemoglobin 5.4 H POC ABG HHb (Measured) 6.4 H ABG Methemoglobin 2.1 ABG O2 Capacity 22.7 Tone Test Yes VBG pH 7.33 VBG pCO2 69 H* VBG HCO3 28.0 VBG Total CO2 38.5 H VBG O2 Sat (Calc) 37.7 L VBG Base Excess 6.9 H VBG Potassium 5.3 H A-a O2 Difference 94.0 109.0 Hgb O2 Saturation 86.1 L Sodium 132.0 130 L Chloride 92.0 L 92 L Glucose 146 H Lactate 1.7 Liter Flow 3 FiO2 30.0 30.0 Blood Gas Comments 3l/m nc,rb 3l, nc Crit Value Called To Kelsie lawrence Crit Value Called By 15 Crit Value Read Back Y Blood Gas Notified Time 1010 Potassium 4.3 Carbon Dioxide 31 H Anion Gap 11 BUN 4 L Creatinine 0.6 L Est GFR ( Amer) > 60 Est GFR (Non-Af Amer) > 60 Random Glucose 136 H Calcium 9.2 Troponin I NT-Pro-B Natriuret Pep Venous Blood Potassium 5.3 H Alcohol, Quantitative < 10 02/18/17 02/18/17 09:50 10:03 WBC 6.9 RBC 5.21 Hgb 17.1 D Hct 50.8 MCV 97.4 H D MCH 32.8 H MCHC 33.7 RDW 14.4 Plt Count 222 MPV 9.7 Neut % (Auto) 74.5 Lymph % (Auto) 10.2 L [place] % (Auto) 12.3 H Eos % (Auto) 2.8 Baso % (Auto) 0.2 Neut # 5.1 Lymph # 0.7 L [place] # 0.8 Eos # 0.2 Baso # 0.0 pCO2 pO2 HCO3 ABG pH ABG Total CO2 ABG O2 Saturation ABG O2 Content ABG Base Excess ABG Hemoglobin ABG Carboxyhemoglobin POC ABG HHb (Measured) ABG Methemoglobin ABG O2 Capacity Tone Test VBG pH VBG pCO2 VBG HCO3 VBG Total CO2 VBG O2 Sat (Calc) VBG Base Excess VBG Potassium A-a O2 Difference Hgb O2 Saturation Sodium Chloride Glucose Lactate Liter Flow FiO2 Blood Gas Comments Crit Value Called To Crit Value Called By Crit Value Read Back Blood Gas Notified Time Potassium Carbon Dioxide Anion Gap BUN Creatinine Est GFR ( Amer) Est GFR (Non-Af Amer) Random Glucose Calcium Troponin I < 0.0120 NT-Pro-B Natriuret Pep 342 Venous Blood Potassium Alcohol, Quantitative Assessment & Plan - Assessment and Plan (Free Text) Plan: aspontaneous Pneumothorax: 2nd underlying emphysematous lung with large bullae, s/p chest tube by surgery -Emphysematous lung disease: continue suppleemntation to keep spo2 b. [id number], no signs of CO2 retention, mentalt status good. Avoid sedatives., continue bronchodilators and steroids, check influenza, check procalcitonine and lactic -contineu dvt/ppx heparin SQ or lovenox -PUD ppx not indicates Patient remains hemodynamically stable POssible pleurodesis by thoracic surgery/team. - Date & Time Date: 02/18/17 Time: 14:35
--- NOTE | 2017-02-18 14:07 | RAD ---
HISTORY: s/p intubation COMPARISON: Recent CT scan of the chest and chest radiograph performed earlier the same day FINDINGS: LUNGS: Re-expansion of left lung with patchy atelectasis/ infiltrate at the left base. PLEURA: No significant pleural effusion identified, no pneumothorax apparent. CARDIOVASCULAR: Normal. OSSEOUS STRUCTURES: No significant abnormalities. VISUALIZED UPPER ABDOMEN: Normal. OTHER FINDINGS: Interval placement of left chest tube with associated regional left chest wall subcutaneous emphysema. IMPRESSION: Interval placement of a left-sided chest tube with re-expansion of the left lung. Minimal residual patchy atelectasis/ infiltrate at the left base.
[2017-02-18] MEDS ORDERED: Pneumococcal 23-Valent Vaccine IM ONE (14:35)
[2017-02-18] MEDS ORDERED: Influenza Vaccine 18yr & older 0.5 ML/45 MCG SYR IM ONE (14:37)
[2017-02-18 17:04] LABS: ABG ALLEN TEST YES; ARTERIAL BLOOD GAS HCO3 28.5 mmol/L (21-28); ARTERIAL BLOOD GAS HEMOGLOBIN 15.9 g/dL (11.7-17.4); ARTERIAL BLOOD GAS O2 CAPACITY 21.5 mL/dL (16-24); ARTERIAL BLOOD GAS O2 SAT 97.6 % (95-98); ARTERIAL BLOOD GAS PCO2 57 mm/Hg (35-45); ARTERIAL BLOOD GAS PH 7.36 (7.35-7.45); ARTERIAL BLOOD GAS PO2 80 mm/Hg (80-100); ARTERIAL BLOOD GAS TCO2 33.9 mmol/L (22-28)
[2017-02-18] MEDS ORDERED: Albuterol-Ipratrop 3 mg / 0.5 (3 ml) UD INH SCH (17:15)
[2017-02-18 19:45] LABS: BARBITURATES, UR NEGATIVE (NEGATIVE); BENZODIAZEPINES, UR NEGATIVE (NEGATIVE); OPIATES, UR POSITIVE (NEGATIVE); PHENCYCLIDINE, UR NEGATIVE (NEGATIVE)
[2017-02-19] MEDS: Albuterol-Ipratrop 3 mg / 0.5 (3 ml) UD INH SCH ×4 (01:10→19:32)
[2017-02-19 05:37] LABS: BASO % 0.3 % (0.0-2.0); EOS % 0.1 % (0.0-4.0); LYMPH # 0.6 K/uL (1.0-4.3); LYMPH % 10.3 % (20.0-40.0); MEAN CELL VOLUME 98.5 fl (80.0-94.0); MEAN CORPUSCULAR HEMOGLOBIN 32.7 pg (27.0-31.0); MEAN CORPUSCULAR HGB CONC 33.2 g/dL (33.0-37.0); MEAN PLATELET VOLUME 8.9 fl (7.2-11.7); MONO # 0.9 K/uL (0.0-0.8); MONO % 15.9 % (0.0-10.0); NEUT # 4.3 K/uL (1.8-7.0); NEUT % 73.4 % (50.0-75.0); NRBC % 0.1 % (0.0-0.0); RBC 4.6 Mil/uL (4.40-5.90); RED CELL DISTRIBUTION WIDTH 14.2 % (11.5-14.5); WHITE BLOOD COUNT 5.8 K/uL (4.8-10.8)
[2017-02-19 05:57] LABS: B-TYPE NATRIURETIC PEPTIDE 227 pg/ml (0-900)
[2017-02-19 06:24] LABS: ALB/GLOB RATIO 1.2 (1.0-2.1); ALBUMIN 3.5 g/dL (3.5-5.0); ALT/SGPT 46 U/L (21-72); AST/SGOT 37 U/L (17-59); BLOOD UREA NITROGEN 9 mg/dl (9-20); GFR AFRICAN-AMERICAN > 60; GFR NON-AFRICAN AMERICAN > 60
--- NOTE | 2017-02-19 08:12 | CARD ---
APPROVED REPORT EKG Measurement Heart [id number] <Conclusion> Sinus rhythm with fusion complexes Otherwise normal ECG
--- NOTE | 2017-02-19 08:16 | CP.PCM.PN ---
Subjective - Date & Time of Evaluation Date of Evaluation: 02/19/17 Time of Evaluation: 07:00 - Subjective Subjective: THORACIC SURGERY PROGRESS NOTE FOR DR. GALLEGO Patient seen and examined at bedside in the ICU. He reports pain at the chest tube site. He denies SOB, CP, nausea, vomiting. Left Chest tube in place on suction, no air leak. There were 14cc serosanguinous drainage since placement yesterday. Dressing was changed. Patient smokes 3PPD and he was counseled regarding smoking cessation. Objective - Vital Signs/Intake and Output Vital Signs (last 24 hours): Temp Pulse Resp BP Pulse Ox 98.7 F 57 L 12 125/66 97 02/19/17 04:00 02/19/17 06:00 02/19/17 06:00 02/19/17 06:00 02/19/17 06:00 Intake and Output: 02/19/17 02/19/17 06:59 18:59 Intake Total 440 Output Total 1314 Balance -874 - Medications Medications: Current Medications Albuterol/Ipratropium (Duoneb 3 Mg/0.5 Mg (3 Ml) Ud) 3 ml INH RQ6 JAIDA Last Admin: 02/19/17 08:03 Dose: 3 ml Levofloxacin/Dextrose (Levaquin 750mg) 750 mg in 150 mls @ 100 mls/hr IVPB DAILY JAIDA PRN Reason: Protocol Morphine Sulfate (Morphine) 2 mg IVP Q4H PRN PRN Reason: Pain, severe (8-10) Last Admin: 02/18/17 23:27 Dose: 2 mg Oxycodone/Acetaminophen (Percocet 5/325 Mg Tab) 1 tab PO Q4 PRN PRN Reason: Pain, moderate (4-7) Stop: 02/21/17 15:40 - Labs Labs: 02/19/17 05:20 02/19/17 05:20 - Constitutional Appears: Well, Non-toxic, No Acute Distress - Head Exam Head Exam: ATRAUMATIC, NORMAL INSPECTION - Eye Exam Eye Exam: EOMI, Normal appearance - Respiratory Exam Respiratory Exam: NORMAL BREATHING PATTERN. absent: Respiratory Distress Additional comments: Left Chest tube in place on suction, no air leak. 14cc serosanguinous drainage since placement yesterday. - Cardiovascular Exam Cardiovascular Exam: +S1, +S2 - GI/Abdominal Exam GI & Abdominal Exam: Soft. absent: Distended, Firm, Rigid, Tenderness - Neurological Exam Neurological Exam: Alert, Awake, Oriented x3 - Psychiatric Exam Psychiatric exam: Normal Affect, Normal Mood - Skin Skin Exam: Dry, Normal Color, Warm Assessment and Plan - Assessment and Plan (Free Text) Assessment: 61yo M with PMHx of tobacco abuse, emphysematous COPD, PVD who had a left pneumothorax s/p left chest tube placement POD#1 - Afebrile, VSS - Left Chest tube in place on suction, no air leak. - 14cc serosanguinous drainage since placement yesterday - Daily CXR - CXR this AM shows re-expansion of lung - Discussed plan with Dr. Irene Harper PGY-3
--- NOTE | 2017-02-19 08:46 | CP.PCM.PN ---
<Alanna Morrell - Last Filed: 02/19/17 12:36> Subjective - Date & Time of Evaluation Date of Evaluation: 02/19/17 Time of Evaluation: 07:30 - Subjective Subjective: Patient seen and examined at bedside. Reports pain at chest tube site; chest tube in place in left hemithorax. Chest tube to suction, no air leak noted, dressing dry. Drained 10-15 cc of sanguineous fluid since placement. Pt has not had further shortness of breath. Has had productive cough, clear-yellowish sputum seen. Denies chest pain, palpitations, SOB, abdominal pain, issues voiding, leg/calf pain/swelling. Objective - Vital Signs/Intake and Output Vital Signs (last 24 hours): Temp Pulse Resp BP Pulse Ox 98.7 F 57 L 12 125/66 97 02/19/17 04:00 02/19/17 06:00 02/19/17 06:00 02/19/17 06:00 02/19/17 06:00 Intake and Output: 02/19/17 02/19/17 06:59 18:59 Intake Total 440 Output Total 1314 Balance -874 - Medications Medications: Current Medications Albuterol/Ipratropium (Duoneb 3 Mg/0.5 Mg (3 Ml) Ud) 3 ml INH RQ6 JAIDA Last Admin: 02/19/17 08:03 Dose: 3 ml Levofloxacin/Dextrose (Levaquin 750mg) 750 mg in 150 mls @ 100 mls/hr IVPB DAILY JAIDA PRN Reason: Protocol Morphine Sulfate (Morphine) 2 mg IVP Q4H PRN PRN Reason: Pain, severe (8-10) Last Admin: 02/18/17 23:27 Dose: 2 mg Oxycodone/Acetaminophen (Percocet 5/325 Mg Tab) 1 tab PO Q4 PRN PRN Reason: Pain, moderate (4-7) Stop: 02/21/17 15:40 - Labs Labs: 02/19/17 05:20 02/19/17 05:20 - Head Exam Head Exam: NORMOCEPHALIC - Eye Exam Eye Exam: EOMI, Normal appearance - ENT Exam ENT Exam: Mucous Membranes Moist - Neck Exam Neck Exam: Full ROM - Respiratory Exam Respiratory Exam: absent: Respiratory Distress Additional comments: improved breath sounds bilaterally chest tube in place on L, drained 10-15 cc serosanguinous fluid - Cardiovascular Exam Cardiovascular Exam: REGULAR RHYTHM, +S1, +S2 - GI/Abdominal Exam GI & Abdominal Exam: Soft, Normal Bowel Sounds. absent: Tenderness - Extremities Exam Extremities Exam: absent: Calf Tenderness, Pedal Edema - Back Exam Back Exam: NORMAL INSPECTION - Neurological Exam Neurological Exam: Alert, Awake - Skin Skin Exam: Dry, Warm Assessment and Plan - Assessment and Plan (Free Text) Assessment: 61 yo M with hx COPD, admitted for left sided pneumothorax, s/p chest tube placement. Appears to be doing better today, symptoms are improving. Plan: 1) Left-sided Pneumothorax -Seen on Chest CT and CXR done in ED, left sided chest tube placed in ED by gen surg. -Repeat CXR done in ED showed re-expansion of left lung with patchy atelectasis/ infiltrate at left base -Pulmonology onboard, consult appreciated - switch to nasal cannula oxygen and monitor. -Daily CXR as per general surgery -Percocet 5-325mg Q4 PRN -F/u CBC, CMP 2) COPD exacerbation -S/p 125 mg methylprednisone in ED -Duonebs Q4 PRN 3) Infiltrates at left lung base -Levofloxacin 750 mg daily -Procalcitonin pending 3) DVT prophylaxis -SCD <Zakia Walker - Last Filed: 02/19/17 13:42> Objective - Vital Signs/Intake and Output Vital Signs (last 24 hours): Temp Pulse Resp BP Pulse Ox 98.2 F 66 12 111/80 92 L 02/19/17 12:00 02/19/17 12:00 02/19/17 12:00 02/19/17 12:00 02/19/17 12:00 Intake and Output: 02/19/17 02/19/17 06:59 18:59 Intake Total 440 500 Output Total 1314 Balance -874 500 - Medications Medications: Current Medications Albuterol/Ipratropium (Duoneb 3 Mg/0.5 Mg (3 Ml) Ud) 3 ml INH RQ6 [facility] Last Admin: 02/19/17 08:03 Dose: 3 ml Heparin Sodium (Porcine) (Heparin) 5,000 units SC Q8 JAIDA PRN Reason: Protocol Levofloxacin/Dextrose (Levaquin 750mg) 750 mg in 150 mls @ 100 mls/hr IVPB DAILY JAIDA PRN Reason: Protocol Last Admin: 02/19/17 10:34 Dose: 100 mls/hr Oxycodone/Acetaminophen (Percocet 5/325 Mg Tab) 1 tab PO Q4 PRN PRN Reason: Pain, moderate (4-7) Stop: 02/21/17 15:40 - Labs Labs: 02/19/17 05:20 02/19/17 05:20 Attending/Attestation - Attestation I have personally seen and examined this patient.: Yes I have fully participated in the care of the patient.: Yes I have reviewed all pertinent clinical information, including history, physical exam and plan: Yes Notes (Text): 02/19/17 13:42 Attending note - Attestation patient seen and examined. case discussed with resident. Agree with findings and plan.
--- NOTE | 2017-02-19 10:11 | CON ---
DATE: HISTORY OF PRESENT ILLNESS: Mr. Arreaga is a 61-year-old male, who was referred by the [facility] team following admission to the hospital because of worsening shortness of breath and what appeared to be a left-sided pneumothorax requiring thoracostomy, left chest tube placement. He has a history of chronic obstructive pulmonary disease with polysubstance abuse and has been noncompliant to followup with physicians. He is presently homeless and indicates that he does not remember having any medical problems. He smokes 1 to 3 packs of cigarettes daily and also drinks alcohol judiciously. FAMILY HISTORY: No family history is obtained. PHYSICAL EXAMINATION: GENERAL: The patient is awake, alert, refusing to keep on his oxygen face mask and indicates that he is hungry and he is breathing alright and really wants the face mask removed. He is alert and oriented x3. Has no apparent respiratory distress. VITAL SIGNS: Blood pressure 125/66, pulse of 60, respiratory rate IS 20 per minute, he is afebrile, O2 sat is 97% on face mask oxygen. HEENT: Mouth shows poor hygiene. NECK: JVP flat. LUNGS: Fair aeration bilaterally with basal dullness. He has a left chest tube in place. HEART: Regular. ABDOMEN: Soft, nontender. No organomegaly. EXTREMITIES: Show no edema or cyanosis, but there is clubbing of fingers and dirty discoloration of fingers. CENTRAL NERVOUS SYSTEM: Grossly intact. LABORATORY DATA: Remarkable for WBC of 5.8, hemoglobin of 15, platelet count of 177,000. Sodium 133, potassium 4.1, BUN of 9, creatinine 0.8. ABGs on face mask, pH is 7.36, pO2 of 57, pO2 of 80, bicarbonate of 28.5, O2 sat 97.6. Chest x-ray prior to chest tube placement shows a left apical bullous disease, left upper and lower lobe atelectasis, large left pneumothorax. CT scan of the chest is remarkable for very large left pneumothorax, possibly from ruptured bulla causing mild rightward mediastinal shift. Lingula and left lower lobe atelectasis with patchy left lower lobe consolidation. Chest x-ray post chest tube placement shows reexpansion of the left lung. Minimal residual patchy atelectasis and infiltrate, left base. IMPRESSION: A 61-year-old male with chronic obstructive pulmonary disease and bullous disease with spontaneous pneumothorax, status post chest tube place and reexpansion of lung; residual atelectasis; history of multisubstance abuse and poor compliance to medication and followup. The patient is refusing to keep on his oxygen. PLAN: The plan at present would be to switch the face mask to nasal cannula oxygen and monitor the patient. He could be transferred to telemetry if cleared by the medical team. Aerosolized bronchodilators already ordered. We will continue to follow with you. Juan Luis Marquez MD
[2017-02-19] MEDS: levoFLOXacin 750 mg in D5W 750 MG/150 ML BAG IVPB SCH (10:34)
--- NOTE | 2017-02-19 11:09 | RAD ---
HISTORY: chest tube COMPARISON: 02/18/2017 FINDINGS: LUNGS: Linear atelectasis at left base. No focal consolidation elsewhere. PLEURA: No pneumothorax. Left chest tube, unchanged. No pleural effusion. CARDIOVASCULAR: Normal. OSSEOUS STRUCTURES: No significant abnormalities. VISUALIZED UPPER ABDOMEN: Normal. OTHER FINDINGS: None. IMPRESSION: No left pneumothorax. Left chest tube. Left basilar subsegmental atelectasis
--- NOTE | 2017-02-19 14:00 | CP.PCM.PN ---
Subjective - Date & Time of Evaluation Date of Evaluation: 02/19/17 Time of Evaluation: 13:59 - Subjective Subjective: Pt s/e. Clinically stable. cxr-No pneumothorax. Continue chest tube to water seal. Objective - Vital Signs/Intake and Output Vital Signs (last 24 hours): Temp Pulse Resp BP Pulse Ox 98.2 F 66 12 111/80 92 L 02/19/17 12:00 02/19/17 12:00 02/19/17 12:00 02/19/17 12:00 02/19/17 12:00 Intake and Output: 02/19/17 02/19/17 06:59 18:59 Intake Total 440 500 Output Total 1314 Balance -874 500 - Medications Medications: Current Medications Albuterol/Ipratropium (Duoneb 3 Mg/0.5 Mg (3 Ml) Ud) 3 ml INH RQ6 [facility] Last Admin: 02/19/17 13:51 Dose: 3 ml Heparin Sodium (Porcine) (Heparin) 5,000 units SC Q8 [facility]IDA PRN Reason: Protocol Levofloxacin/Dextrose (Levaquin 750mg) 750 mg in 150 mls @ 100 mls/hr IVPB DAILY JAIDA PRN Reason: Protocol Last Admin: 02/19/17 10:34 Dose: 100 mls/hr Oxycodone/Acetaminophen (Percocet 5/325 Mg Tab) 1 tab PO Q4 PRN PRN Reason: Pain, moderate (4-7) Stop: 02/21/17 15:40 - Labs Labs: 02/19/17 05:20 02/19/17 05:20
[2017-02-19 15:36] VITALS: BMI 21.4
[2017-02-19] MEDS: Oxycodone/Acetaminophen 5/325 mg Tab PO PRN (21:02)
[2017-02-20] MEDS: Albuterol-Ipratrop 3 mg / 0.5 (3 ml) UD INH SCH ×4 (01:03→19:53)
[2017-02-20 05:22] LABS: HEMOGLOBIN 15.5 g/dL (12.0-18.0); MEAN CELL VOLUME 99.5 fl (80.0-94.0); MEAN CORPUSCULAR HGB CONC 33.2 g/dL (33.0-37.0); RBC 4.71 Mil/uL (4.40-5.90); RED CELL DISTRIBUTION WIDTH 14.3 % (11.5-14.5)
[2017-02-20 05:48] LABS: ALB/GLOB RATIO 1.1 (1.0-2.1); ALBUMIN 3.5 g/dL (3.5-5.0); ALT/SGPT 35 U/L (21-72); AST/SGOT 39 U/L (17-59); BLOOD UREA NITROGEN 9 mg/dl (9-20); CALCIUM 8.5 mg/dL (8.4-10.2); GFR AFRICAN-AMERICAN > 60; GFR NON-AFRICAN AMERICAN > 60
--- NOTE | 2017-02-20 07:41 | CP.CCUPN ---
CCU Subjective - Physician Review Subjective (Free Text): 02/20/17 17:50 The patient was Seen/interviewed and examined by me at the bedside, Medical records reviewed and Management issues were discussed and formulated with the house staff. Events reviewed 61 Y/O M with extensive smoking tobacco history and COPD/emphysematous who presents to [facility] with sudden difficulty breathing after coughing Admitted to ICU with spontaneous pneumothorax, in the sitting of COPD exacerbation underwent chest tube placement by surgery, CT off suction, minimal output Patient doing well today, stable respiratory status on suplemental Oxygen with 3L nasal cannula CCU Objective - Vital Signs / Intake & Output Vital Signs (Last 4 hours): Vital Signs Temp Pulse Resp BP Pulse Ox 02/20/17 05:58 55 L 12 122/95 H 91 L 02/20/17 04:00 98.2 F 54 L 12 129/91 H 91 L Intake and Output (Last 8hrs): Intake & Output 02/19/17 02/20/17 02/20/17 22:59 06:59 14:59 Intake Total 600 300 Output Total 908 1200 8 Balance -308 -900 -8 Weight 141 lb Intake: Oral 600 300 Output: Chest Tube Drainage 8 8 Left Mid-Axillary Chest 8 8 Urine 900 1200 Urine, Voided 900 1200 Other: # Voids Urine, Voided 0 2 - Physical Exam Head: Positive for: Atraumatic, Normocephalic Pupils: Positive for: PERRL Extroacular Muscles: Positive for: EOMI Conjunctiva: Positive for: Normal Ears: Positive for: Normal Mouth: Positive for: Moist Mucous Membranes Pharnyx: Positive for: Normal Neck: Positive for: Normal Range of Motion, Trachea Midline. Negative for: Meningeal Signs, MIDLINE TENDERNESS, Paraspinal Tenderness, JVD, Lymphadenopathy , Bruit, Other Respiratory/Chest: Positive for: Clear to Auscultation, Good Air Exchange. Negative for: Respiratory Distress, Accessory Muscle Use, Rales, Retracting, Rhonchi Cardiovascular: Positive for: Regular Rate and Rhythm, Normal S1, S2, Peripheal Pulses Present. Negative for: Murmurs, Irregular Rhythm, Tachycardic, Bradycardic Abdomen: Positive for: Normal Bowel Sounds. Negative for: Tenderness, Distention Neurological: Positive for: GCS=15, CN II-XII Intact, Speech Normal, Motor Func Grossly Intact, Normal Sensory Function Psychiatric: Positive for: Alert, Oriented x 3 - Medications Active Medications: Active Medications Generic Name Dose Route Start Last Admin Trade Name Freq PRN Reason Stop Dose Admin Albuterol/Ipratropium 3 ml 02/19/17 02:00 02/20/17 01:03 Duoneb 3 Mg/0.5 Mg (3 Ml) Ud INH 3 ml RQ6 JAIDA Administration Heparin Sodium (Porcine) 5,000 units 02/19/17 17:00 02/20/17 00:15 Heparin SC 5,000 units Q8 JAIDA Administration Protocol Levofloxacin/Dextrose 750 mg in 150 mls @ 100 mls/hr 02/19/17 09:00 02/19/17 10:34 Levaquin 750mg IVPB 100 mls/hr DAILY JAIDA Administration Protocol Oxycodone/Acetaminophen 1 tab 02/18/17 15:39 02/19/17 21:02 Percocet 5/325 Mg Tab PO 02/21/17 15:40 1 tab Q4 PRN Administration Pain, moderate (4-7) - Patient Studies Lab Studies: Microbiology Studies 02/18/17 14:48 MRSA Culture (Admit) - Final Nose MRSA NOT DETECTED 02/18/17 09:50 Blood Culture - Preliminary Blood-Venous NO GROWTH AFTER 24 HOURS Lab Studies 02/20/17 02/20/17 02/20/17 Range/Units 04:40 04:40 04:40 WBC 5.0 (4.8-10.8) K/uL RBC 4.71 (4.40-5.90) Mil/uL Hgb 15.5 (12.0-18.0) g/dL Hct 46.8 (35.0-51.0) % MCV 99.5 H (80.0-94.0) fl MCH 33.0 H (27.0-31.0) pg MCHC 33.2 (33.0-37.0) g/dL RDW 14.3 (11.5-14.5) % Plt Count 161 (130-400) K/uL APTT 31.5 (25.6-37.1) Seconds Sodium 135 (132-148) mmol/l Potassium 4.1 (3.6-5.0) MMOL/L Chloride 97 L (98-107) mmol/L Carbon Dioxide 33 H (22-30) mmol/L Anion Gap 9 L (10-20) BUN 9 (9-20) mg/dl Creatinine 0.7 L (0.8-1.5) mg/dl Est GFR ( Amer) > 60 Est GFR (Non-Af Amer) > 60 Random Glucose 106 (75-110) mg/dL Calcium 8.5 (8.4-10.2) mg/dL Total Bilirubin 0.5 (0.2-1.3) mg/dl AST 39 (17-59) U/L ALT 35 (21-72) U/L Alkaline Phosphatase 67 (38-126) U/L Total Protein 6.6 (6.3-8.2) G/DL Albumin 3.5 (3.5-5.0) g/dL Globulin 3.1 (2.2-3.9) gm/dL Albumin/Globulin Ratio 1.1 (1.0-2.1) Procalcitonin (0.19-0.49) NG/ML 02/19/17 Range/Units 05:20 WBC (4.8-10.8) K/uL RBC (4.40-5.90) Mil/uL Hgb (12.0-18.0) g/dL Hct (35.0-51.0) % MCV (80.0-94.0) fl MCH (27.0-31.0) pg MCHC (33.0-37.0) g/dL RDW (11.5-14.5) % Plt Count (130-400) K/uL APTT (25.6-37.1) Seconds Sodium (132-148) mmol/l Potassium (3.6-5.0) MMOL/L Chloride (98-107) mmol/L Carbon Dioxide (22-30) mmol/L Anion Gap (10-20) BUN (9-20) mg/dl Creatinine (0.8-1.5) mg/dl Est GFR ( Amer) Est GFR (Non-Af Amer) Random Glucose (75-110) mg/dL Calcium (8.4-10.2) mg/dL Total Bilirubin (0.2-1.3) mg/dl AST (17-59) U/L ALT (21-72) U/L Alkaline Phosphatase (38-126) U/L Total Protein (6.3-8.2) G/DL Albumin (3.5-5.0) g/dL Globulin (2.2-3.9) gm/dL Albumin/Globulin Ratio (1.0-2.1) Procalcitonin < 0.05 L (0.19-0.49) NG/ML Laboratory Results - last 24 hr 02/19/17 02/20/17 02/20/17 05:20 04:40 04:40 WBC 5.0 RBC 4.71 Hgb 15.5 Hct 46.8 MCV 99.5 H MCH 33.0 H MCHC 33.2 RDW 14.3 Plt Count 161 APTT Sodium 135 Potassium 4.1 Chloride 97 L Carbon Dioxide 33 H Anion Gap 9 L BUN 9 Creatinine 0.7 L Est GFR ( Amer) > 60 Est GFR (Non-Af Amer) > 60 Random Glucose 106 Calcium 8.5 Total Bilirubin 0.5 AST 39 ALT 35 Alkaline Phosphatase 67 Total Protein 6.6 Albumin 3.5 Globulin 3.1 Albumin/Globulin Ratio 1.1 Procalcitonin < 0.05 L 02/20/17 04:40 WBC RBC Hgb Hct MCV MCH MCHC RDW Plt Count APTT 31.5 Sodium Potassium Chloride Carbon Dioxide Anion Gap BUN Creatinine Est GFR ( Amer) Est GFR (Non-Af Amer) Random Glucose Calcium Total Bilirubin AST ALT Alkaline Phosphatase Total Protein Albumin Globulin Albumin/Globulin Ratio Procalcitonin Review of Systems - Cardiovascular Cardiovascular: absent: As Per HPI, Acrocyanosis, Chest Pain, Chest Pain at Rest , Chest Pain with Activity, Claudication, Diaphoresis, Dyspnea, Dyspnea on Exertion, Edema, Irregular Heart Rhythm, Pain Radiating to Arm/Neck/Jaw, Leg Edema, Leg Ulcers, Lightheadedness, Orthopnea, Palpitations, Paroxysmal Nocturnal Dyspnea, Pedal Edema, Radiating Pain, Rapid Heart Rate, Slow Heart Rate, Syncope, Other, UNREMARKABLE - Respiratory Respiratory: absent: As Per HPI, Cough, Dyspnea, Hemoptysis, Dyspnea on Exertion , Wheezing, Snoring, Stridor, Pain on Inspiration, Chest Congestion, Excessive Mucous Production, Change in Mucous Color, Pain with Coughing, Other, UNREMARKABLE Critical Care Progress Note - Extremities/Vascular Does the Patient have a Central Venous Catheter?: No Does the Patient need a Central Venous Catheter?: No Does the Patient have a Teague Catheter?: No Does the Patient need a Teague Catheter?: No - Nutrition Nutrition: Nutrition Category Date Time Status Regular Diet [DIET] Diets 02/19/17 Lunch Active Assessment/Plan (1) Pneumothorax Current Visit: Yes Status: Acute Comment: Post procedure CXR shows fully expanded lung Chest tube to water seal Albuterol/Ipratropium INH RQ6 [facility] Pain control (2) COPD exacerbation Current Visit: Yes Status: Acute Comment: Albuterol/Ipratropium INH RQ6 [facility]IDA (3) Alcohol abuse Current Visit: Yes Status: Chronic (4) Tobacco abuse Current Visit: No Status: Chronic Comment: Smoking cessation counselling
--- NOTE | 2017-02-20 08:13 | CP.PCM.PN ---
Subjective - Date & Time of Evaluation Date of Evaluation: 02/20/17 Time of Evaluation: 08:11 - Subjective Subjective: Cardiothoracic Surgery Progress Note for Dr. Bonilla This patient was seen and examined this Am at bedside. No acute events to report overnight. He is now on 3L NC saturating 90%, his only complaint is back pain. Chest tube to water seal without any air leak. Output since yesterday is minimal. Objective - Vital Signs/Intake and Output Vital Signs (last 24 hours): Temp Pulse Resp BP Pulse Ox 98.2 F 55 L 12 122/95 H 91 L 02/20/17 04:00 02/20/17 05:58 02/20/17 05:58 02/20/17 05:58 02/20/17 05:58 Intake and Output: 02/20/17 02/20/17 06:59 18:59 Intake Total 300 Output Total 1800 8 Balance -1500 -8 - Medications Medications: Current Medications Albuterol/Ipratropium (Duoneb 3 Mg/0.5 Mg (3 Ml) Ud) 3 ml INH RQ6 [facility] Last Admin: 02/20/17 07:47 Dose: 3 ml Heparin Sodium (Porcine) (Heparin) 5,000 units SC Q8 [facility]IDA PRN Reason: Protocol Last Admin: 02/20/17 00:15 Dose: 5,000 units Levofloxacin/Dextrose (Levaquin 750mg) 750 mg in 150 mls @ 100 mls/hr IVPB DAILY JAIDA PRN Reason: Protocol Last Admin: 02/19/17 10:34 Dose: 100 mls/hr Oxycodone/Acetaminophen (Percocet 5/325 Mg Tab) 1 tab PO Q4 PRN PRN Reason: Pain, moderate (4-7) Stop: 02/21/17 15:40 Last Admin: 02/19/17 21:02 Dose: 1 tab - Labs Labs: 02/20/17 04:40 02/20/17 04:40 APTT 31.5 Seconds (25.6-37.1) 02/20/17 04:40 - Constitutional Appears: Non-toxic, No Acute Distress - Head Exam Head Exam: ATRAUMATIC, NORMOCEPHALIC - Eye Exam Eye Exam: EOMI - ENT Exam ENT Exam: Mucous Membranes Moist - Respiratory Exam Respiratory Exam: NORMAL BREATHING PATTERN - Cardiovascular Exam Cardiovascular Exam: REGULAR RHYTHM, +S1 - GI/Abdominal Exam GI & Abdominal Exam: Soft. absent: Guarding, Rigid, Tenderness - Neurological Exam Neurological Exam: Alert, Awake, Oriented x3 - Psychiatric Exam Psychiatric exam: Normal Affect, Normal Mood - Skin Skin Exam: Dry, Intact Assessment and Plan - Assessment and Plan (Free Text) Assessment: 61M with tension pneumothorax s/p left chest tube placement on 02/18 CXR this AM shows expanded lung Keep Pleurovac on water seal Daily CXR Will consider D/C chest tube on POD4-5, if pneumothorax reoccurs pt may need pleurodesis. Discuss with Dr. Irene Sutherland PGY2
--- NOTE | 2017-02-20 08:14 | CARD ---
APPROVED REPORT EXAM: Three-dimensional, Two-dimensional and M-mode echocardiogram with Doppler and color Doppler. Other Information Quality : FairRhythm : NSR Technically limited study due to Pt has chest tubes,only sub xphoid window. INDICATION LV Function:SystolicDiastolic Echo Enhancing Agent Indication: Rule Out Septal Defect Agent/Amount Used: Agitated Saline Mitral Valve E/A ratio0.0 TDI E/Lateral E'0.0E/Medial E'0.0 LEFT VENTRICLE The left ventricle is normal size. There is normal left ventricular wall thickness. Left ventricle systolic function is normal. The left ventricular function is normal. There is normal LV segmental wall motion. Could not be assesed. No left ventricle thrombus noted on this study. RIGHT VENTRICLE The right ventricle is normal size. The right ventricular systolic function is normal. ATRIA The left atrium size is normal. The right atrium size is normal. The bubble study was of poor quality due to the quality of the images but no inter arial or interventricular communication was detected. AORTIC VALVE Could not be seen. Could not be assesed. Could not be assesed. MITRAL VALVE The mitral valve is normal in structure. There is no evidence of mitral valve prolapse. Could not be assesed. There is no mitral valve regurgitation noted. TRICUSPID VALVE The tricuspid valve is normal in structure. There is no tricuspid valve regurgitation noted. PULMONIC VALVE The pulmonic valve is not well visualized. There is no pulmonic valvular regurgitation. GREAT VESSELS Could not be seen. The IVC was not visualized. PERICARDIAL EFFUSION The pericardium appears normal. <Conclusion> Only subxyphoid views were available. The left ventricle is normal size. There is normal left ventricular wall thickness. There is normal LV segmental wall motion. Left ventricle systolic function is normal.
--- NOTE | 2017-02-20 08:27 | CP.PCM.PN ---
Subjective - Date & Time of Evaluation Date of Evaluation: 02/20/17 Time of Evaluation: 08:27 - Subjective Subjective: FEELS BETTER L CHEST TUBE IN PLACE NO SOB\ MILD PAIN AT CHEST TUBE SITE Objective - Vital Signs/Intake and Output Vital Signs (last 24 hours): Temp Pulse Resp BP Pulse Ox 98.2 F 74 15 122/81 94 L 02/20/17 08:00 02/20/17 08:00 02/20/17 08:00 02/20/17 08:00 02/20/17 08:00 Intake and Output: 02/20/17 02/20/17 06:59 18:59 Intake Total 300 Output Total 1800 8 Balance -1500 -8 - Medications Medications: Current Medications Albuterol/Ipratropium (Duoneb 3 Mg/0.5 Mg (3 Ml) Ud) 3 ml INH RQ6 [facility] Last Admin: 02/20/17 07:47 Dose: 3 ml Heparin Sodium (Porcine) (Heparin) 5,000 units SC Q8 JAIDA PRN Reason: Protocol Last Admin: 02/20/17 00:15 Dose: 5,000 units Levofloxacin/Dextrose (Levaquin 750mg) 750 mg in 150 mls @ 100 mls/hr IVPB DAILY JAIDA PRN Reason: Protocol Last Admin: 02/19/17 10:34 Dose: 100 mls/hr Oxycodone/Acetaminophen (Percocet 5/325 Mg Tab) 1 tab PO Q4 PRN PRN Reason: Pain, moderate (4-7) Stop: 02/21/17 15:40 Last Admin: 02/19/17 21:02 Dose: 1 tab - Labs Labs: 02/20/17 04:40 02/20/17 04:40 APTT 31.5 Seconds (25.6-37.1) 02/20/17 04:40 - Constitutional Appears: No Acute Distress - Head Exam Head Exam: ATRAUMATIC, NORMAL INSPECTION, NORMOCEPHALIC - Eye Exam Eye Exam: EOMI, Normal appearance, PERRL Pupil Exam: NORMAL ACCOMODATION, PERRL - ENT Exam ENT Exam: Mucous Membranes Moist, Normal Exam - Neck Exam Neck Exam: Full ROM, Normal Inspection. absent: Lymphadenopathy - Respiratory Exam Respiratory Exam: Prolonged Expiratory Phase, NORMAL BREATHING PATTERN - Cardiovascular Exam Cardiovascular Exam: REGULAR RHYTHM, +S1, +S2. absent: Murmur - GI/Abdominal Exam GI & Abdominal Exam: Soft, Normal Bowel Sounds. absent: Tenderness - Rectal Exam Rectal Exam: NORMAL INSPECTION - Extremities Exam Extremities Exam: Full ROM, Normal Capillary Refill, Normal Inspection. absent : Joint Swelling, Pedal Edema - Back Exam Back Exam: NORMAL INSPECTION - Neurological Exam Neurological Exam: Alert, Awake, CN II-XII Intact, Normal Gait, Oriented x3 - Psychiatric Exam Psychiatric exam: Normal Affect, Normal Mood - Skin Skin Exam: Dry, Intact, Normal Color, Warm Assessment and Plan - Assessment and Plan (Free Text) Assessment: COPD EXAC PNEUMOTHORAX RESOLVED Plan: CONTINUE PRESENT RX OK TO TRANSFER TO TELE
--- NOTE | 2017-02-20 08:38 | CP.PCM.PN ---
<Alanna Morrell - Last Filed: 02/20/17 12:07> Subjective - Date & Time of Evaluation Date of Evaluation: 02/20/17 Time of Evaluation: 07:45 - Subjective Subjective: Patient seen and examined at bedside. Reports no acute events or problems overnight, reports that cough is improving. Chest tube in place, to suction, dressing dry/clean, no leak. Drained about 10-15 cc of sanguineous fluid in last 24 hrs. Denies chest pain, palpitations, SOB, abdominal pain, issues voiding, leg/calf pain/swelling. Objective - Vital Signs/Intake and Output Vital Signs (last 24 hours): Temp Pulse Resp BP Pulse Ox 98.2 F 74 15 122/81 94 L 02/20/17 08:00 02/20/17 08:00 02/20/17 08:00 02/20/17 08:00 02/20/17 08:00 Intake and Output: 02/20/17 02/20/17 06:59 18:59 Intake Total 300 Output Total 1800 8 Balance -1500 -8 - Medications Medications: Current Medications Albuterol/Ipratropium (Duoneb 3 Mg/0.5 Mg (3 Ml) Ud) 3 ml INH RQ6 [facility] Last Admin: 02/20/17 07:47 Dose: 3 ml Heparin Sodium (Porcine) (Heparin) 5,000 units SC Q8 JAIDA PRN Reason: Protocol Last Admin: 02/20/17 00:15 Dose: 5,000 units Levofloxacin/Dextrose (Levaquin 750mg) 750 mg in 150 mls @ 100 mls/hr IVPB DAILY JAIDA PRN Reason: Protocol Last Admin: 02/19/17 10:34 Dose: 100 mls/hr Oxycodone/Acetaminophen (Percocet 5/325 Mg Tab) 1 tab PO Q4 PRN PRN Reason: Pain, moderate (4-7) Stop: 02/21/17 15:40 Last Admin: 02/19/17 21:02 Dose: 1 tab - Labs Labs: 02/20/17 04:40 02/20/17 04:40 APTT 31.5 Seconds (25.6-37.1) 02/20/17 04:40 - Eye Exam Eye Exam: EOMI - ENT Exam ENT Exam: Mucous Membranes Moist - Respiratory Exam Respiratory Exam: absent: Respiratory Distress Additional comments: improved breath sounds bilaterally chest tube in place on L to suction, dressing in place, no leak - Cardiovascular Exam Cardiovascular Exam: +S1, +S2 - GI/Abdominal Exam GI & Abdominal Exam: Soft, Normal Bowel Sounds - Extremities Exam Extremities Exam: absent: Calf Tenderness, Pedal Edema - Back Exam Back Exam: NORMAL INSPECTION - Neurological Exam Neurological Exam: Alert, Awake - Skin Skin Exam: Dry, Warm Assessment and Plan - Assessment and Plan (Free Text) Assessment: 61 yo M with hx COPD, admitted for left sided pneumothorax, s/p chest tube placement POD 3. Plan: 1) Left-sided Pneumothorax -Seen on Chest CT and CXR done in ED -General surgery: left sided chest tube placed in ED by gen surg; to be removed POD 4-5; today is POD 3. Daily CXR. -Repeat CXR done in ED showed re-expansion of left lung with patchy atelectasis/ infiltrate at left base -Pulmonology onboard, consult appreciated - switch to nasal cannula oxygen and monitor. -Percocet 5-325mg Q4 PRN -F/u CBC, CMP 2) COPD exacerbation -S/p 125 mg methylprednisone in ED -Duonebs Q4 PRN 3) Infiltrates at left lung base -Levofloxacin 750 mg daily -Procalcitonin <0.05 3) DVT prophylaxis -SCD -5000U heparin SC Q8 <Zakia Wlaker - Last Filed: 02/22/17 07:37> Objective - Vital Signs/Intake and Output Vital Signs (last 24 hours): Temp Pulse Resp BP Pulse Ox 98.2 F 69 11 L 112/88 93 L 02/21/17 21:00 02/22/17 05:00 02/22/17 05:00 02/22/17 05:00 02/22/17 05:00 Intake and Output: 02/22/17 02/22/17 06:59 18:59 Output Total 1400 Balance -1400 - Medications Medications: Current Medications Acetaminophen (Tylenol 325mg Tab) 650 mg PO Q4 PRN PRN Reason: Pain, Mild (1-3) Albuterol/Ipratropium (Duoneb 3 Mg/0.5 Mg (3 Ml) Ud) 3 ml INH RQ6 [facility] Last Admin: 02/22/17 01:01 Dose: 3 ml Heparin Sodium (Porcine) (Heparin) 5,000 units SC Q8 [facility] PRN Reason: Protocol Last Admin: 02/22/17 01:44 Dose: 5,000 units Levofloxacin/Dextrose (Levaquin 750mg) 750 mg in 150 mls @ 100 mls/hr IVPB DAILY [facility]IDA PRN Reason: Protocol Last Admin: 02/21/17 09:30 Dose: 100 mls/hr Ibuprofen (Motrin Tab) 400 mg PO Q4 PRN PRN Reason: Pain, moderate (4-7) Ibuprofen (Motrin Tab) 600 mg PO Q6 PRN PRN Reason: Pain, severe (8-10) Last Admin: 02/22/17 01:47 Dose: 600 mg Prednisone (Prednisone Tab) 40 mg PO DAILY [facility] Last Admin: 02/21/17 13:12 Dose: 40 mg - Labs Labs: 02/22/17 05:20 02/22/17 05:20 APTT 31.5 Seconds (25.6-37.1) 02/20/17 04:40 Attending/Attestation - Attestation I have personally seen and examined this patient.: Yes I have fully participated in the care of the patient.: Yes I have reviewed all pertinent clinical information, including history, physical exam and plan: Yes Notes (Text): 02/22/17 07:37 Patient seen and examined. Case discussed with resident. Agree with findings and plan.
[2017-02-20] MEDS: levoFLOXacin 750 mg in D5W 750 MG/150 ML BAG IVPB SCH (09:27)
--- NOTE | 2017-02-20 14:52 | CT ---
PROCEDURE: CT Chest without contrast HISTORY: per Dr. Bonilla, s/p pneumothorax COMPARISON: 02/18/2017 CT thorax TECHNIQUE: Contiguous axial images were obtained through the chest without intravenous contrast enhancement. Sagittal and coronal reconstructions were performed. Radiation dose (DLP): 325.72 mGy-cm. This CT exam was performed using one or more of the following dose reduction techniques: Automated exposure control, adjustment of the mA and/or kV according to patient size, and/or use of iterative reconstruction technique. FINDINGS: LUNGS: Re-expansion left lung following chest tube insertion. The chest tube is in satisfactory position in the pleural space. Underlying bullous changes better appreciated on the current study not at the left lung and in particular left lower upper lobe are re-expanded. Basilar infiltrate, atelectasis right lower lobe, a new finding compared to the prior study. MEDIASTINUM: Unremarkable thoracic aorta. No aneurysm. Normal sized heart. Main pulmonary artery unremarkable. No vascular congestion. No lymphadenopathy. PLEURA: Previously identified pneumothorax is no longer seen. Chest tube is in satisfactory position directed posteriorly in the pleural space. BONES: No fracture. No destructive lesion. UPPER ABDOMEN: Grossly unremarkable. OTHER FINDINGS: Subcutaneous emphysema at the site of the chest tube insertion into the chest wall identified. IMPRESSION: 1. Complete re-expansion of the left lung following chest tube insertion. No pneumothorax identified. Chest tube is in satisfactory position. Associated subcutaneous air identified at chest tube insertion site. 2. Underlying hyperinflation, manifestations of COPD with bulla formation in both apices left greater than right. 3. Faint infiltrate, atelectasis basilar segment right lower lobe. This represents a new finding.
--- NOTE | 2017-02-20 16:55 | RAD ---
HISTORY: COPD, follow-up pneumothorax COMPARISON: February 19, 2017. 04:33 FINDINGS: LUNGS: No active pulmonary disease. PLEURA: Stable position of chest tube in the left pleural space. CARDIOVASCULAR: No radiographic findings to suggest acute or significant cardiovascular disease. OSSEOUS STRUCTURES: No significant abnormalities. VISUALIZED UPPER ABDOMEN: Normal. OTHER FINDINGS: None. IMPRESSION: No active pulmonary disease. Satisfactory position of chest tube in the left pleural space.
[2017-02-20] MEDS: Oxycodone/Acetaminophen 5/325 mg Tab PO PRN (18:45)
[2017-02-21] MEDS: Albuterol-Ipratrop 3 mg / 0.5 (3 ml) UD INH SCH ×4 (01:15→19:29)
[2017-02-21 05:47] LABS: MEAN CELL VOLUME 99.7 fl (80.0-94.0); MEAN CORPUSCULAR HEMOGLOBIN 33.1 pg (27.0-31.0); MEAN CORPUSCULAR HGB CONC 33.2 g/dL (33.0-37.0); RBC 4.52 Mil/uL (4.40-5.90); RED CELL DISTRIBUTION WIDTH 14.2 % (11.5-14.5); WHITE BLOOD COUNT 4.6 K/uL (4.8-10.8)
[2017-02-21 06:09] LABS: BLOOD UREA NITROGEN 11 mg/dl (9-20); CALCIUM 8.6 mg/dL (8.4-10.2); GFR AFRICAN-AMERICAN > 60; GFR NON-AFRICAN AMERICAN > 60
[2017-02-21] MEDS: Oxycodone/Acetaminophen 5/325 mg Tab PO PRN ×2 (06:09→13:11)
--- NOTE | 2017-02-21 08:29 | CP.PCM.PN ---
Subjective - Date & Time of Evaluation Date of Evaluation: 02/21/17 Time of Evaluation: 08:28 - Subjective Subjective: NO NEW CLINICAL FINDINGS NO SOB Objective - Vital Signs/Intake and Output Vital Signs (last 24 hours): Temp Pulse Resp BP Pulse Ox 98.7 F 80 12 111/80 92 L 02/21/17 04:29 02/21/17 06:11 02/21/17 06:11 02/21/17 06:11 02/21/17 06:11 Intake and Output: 02/21/17 02/21/17 06:59 18:59 Intake Total 100 Output Total 206 Balance -106 - Medications Medications: Current Medications Albuterol/Ipratropium (Duoneb 3 Mg/0.5 Mg (3 Ml) Ud) 3 ml INH RQ6 [facility] Last Admin: 02/21/17 07:50 Dose: 3 ml Heparin Sodium (Porcine) (Heparin) 5,000 units SC Q8 [facility] PRN Reason: Protocol Last Admin: 02/21/17 00:02 Dose: 5,000 units Levofloxacin/Dextrose (Levaquin 750mg) 750 mg in 150 mls @ 100 mls/hr IVPB DAILY [facility] PRN Reason: Protocol Last Admin: 02/20/17 09:27 Dose: 100 mls/hr Oxycodone/Acetaminophen (Percocet 5/325 Mg Tab) 1 tab PO Q4 PRN PRN Reason: Pain, moderate (4-7) Stop: 02/21/17 15:40 Last Admin: 02/21/17 06:09 Dose: 1 tab - Labs Labs: 02/21/17 04:40 02/21/17 04:40 APTT 31.5 Seconds (25.6-37.1) 02/20/17 04:40 - Constitutional Appears: No Acute Distress - Head Exam Head Exam: ATRAUMATIC, NORMAL INSPECTION, NORMOCEPHALIC - Eye Exam Eye Exam: EOMI, Normal appearance, PERRL Pupil Exam: NORMAL ACCOMODATION, PERRL - ENT Exam ENT Exam: Mucous Membranes Moist, Normal Exam - Neck Exam Neck Exam: Full ROM, Normal Inspection. absent: Lymphadenopathy - Respiratory Exam Respiratory Exam: Decreased Breath Sounds, Rales, Wheezes, NORMAL BREATHING PATTERN - Cardiovascular Exam Cardiovascular Exam: REGULAR RHYTHM, +S1, +S2. absent: Murmur - GI/Abdominal Exam GI & Abdominal Exam: Soft, Normal Bowel Sounds. absent: Tenderness - Rectal Exam Rectal Exam: NORMAL INSPECTION - Extremities Exam Extremities Exam: Full ROM, Normal Capillary Refill, Normal Inspection. absent : Joint Swelling, Pedal Edema - Back Exam Back Exam: NORMAL INSPECTION - Neurological Exam Neurological Exam: Alert, Awake, CN II-XII Intact, Normal Gait, Oriented x3 - Psychiatric Exam Psychiatric exam: Normal Affect, Normal Mood - Skin Skin Exam: Dry, Intact, Normal Color, Warm Assessment and Plan - Assessment and Plan (Free Text) Assessment: PNEUMOTHORAX RESOLVED COPD WITH SEVERE BULLOUS DZ Plan: THERAPY PER THORACIC SURGEON
--- NOTE | 2017-02-21 09:25 | RAD ---
HISTORY: left chest tube COMPARISON: Chest radiograph and chest CT dated 02/20/2017 FINDINGS: LUNGS: Right lower lobe atelectasis. PLEURA: No significant pleural effusion identified, no pneumothorax apparent. CARDIOVASCULAR: Normal. OSSEOUS STRUCTURES: No significant abnormalities. VISUALIZED UPPER ABDOMEN: Normal. OTHER FINDINGS: Left-sided chest tube, unchanged. Similar left chest wall subcutaneous emphysema IMPRESSION: Right lower lobe atelectasis. No appreciable pneumothorax.
[2017-02-21] MEDS: levoFLOXacin 750 mg in D5W 750 MG/150 ML BAG IVPB SCH (09:30)
--- NOTE | 2017-02-21 10:05 | CP.PCM.PN ---
Subjective - Date & Time of Evaluation Date of Evaluation: 02/21/17 Time of Evaluation: 07:30 - Subjective Subjective: Pt seen and evaluated at bedside this morning, had no acute events overnight, no new issues of complaints. Chest tube in place on L side posteriorly, to suction, minimal draining overnight. Has cough that is still present but improving. Objective - Vital Signs/Intake and Output Vital Signs (last 24 hours): Temp Pulse Resp BP Pulse Ox 98.0 F 74 13 108/77 95 02/21/17 08:00 02/21/17 09:00 02/21/17 09:00 02/21/17 08:00 02/21/17 09:00 Intake and Output: 02/21/17 02/21/17 06:59 18:59 Intake Total 100 390 Output Total 206 Balance -106 390 - Medications Medications: Current Medications Albuterol/Ipratropium (Duoneb 3 Mg/0.5 Mg (3 Ml) Ud) 3 ml INH RQ6 [facility] Last Admin: 02/21/17 07:50 Dose: 3 ml Heparin Sodium (Porcine) (Heparin) 5,000 units SC Q8 [facility] PRN Reason: Protocol Last Admin: 02/21/17 09:29 Dose: 5,000 units Levofloxacin/Dextrose (Levaquin 750mg) 750 mg in 150 mls @ 100 mls/hr IVPB DAILY [facility] PRN Reason: Protocol Last Admin: 02/21/17 09:30 Dose: 100 mls/hr Oxycodone/Acetaminophen (Percocet 5/325 Mg Tab) 1 tab PO Q4 PRN PRN Reason: Pain, moderate (4-7) Stop: 02/21/17 15:40 Last Admin: 02/21/17 06:09 Dose: 1 tab - Labs Labs: 02/21/17 04:40 02/21/17 04:40 APTT 31.5 Seconds (25.6-37.1) 02/20/17 04:40 - Constitutional Appears: Non-toxic - Head Exam Head Exam: NORMAL INSPECTION - Eye Exam Eye Exam: EOMI, Normal appearance - Neck Exam Neck Exam: absent: Lymphadenopathy - Respiratory Exam Respiratory Exam: NORMAL BREATHING PATTERN. absent: Respiratory Distress Additional comments: coarse breath sounds bilaterally throughout chest tube in place on L to suction, dressing in place, no leak - Cardiovascular Exam Cardiovascular Exam: REGULAR RHYTHM, +S1, +S2 - GI/Abdominal Exam GI & Abdominal Exam: Soft, Normal Bowel Sounds - Extremities Exam Extremities Exam: absent: Calf Tenderness, Pedal Edema - Neurological Exam Neurological Exam: Alert, Awake - Skin Skin Exam: Dry, Normal Color Assessment and Plan - Assessment and Plan (Free Text) Assessment: 61 yo M with hx COPD, admitted for left sided pneumothorax, s/p chest tube placement POD 4. Plan: 1) Left-sided Pneumothorax -Seen on Chest CT and CXR done in ED -General surgery: left sided chest tube placed in ED by gen surg; to be removed POD 4-5; today is POD 4. Daily CXR. -Repeat CXR done in ED showed re-expansion of left lung with patchy atelectasis/ infiltrate at left base -Pulmonology onboard, consult appreciated -Percocet 5-325mg Q4 PRN 2) COPD exacerbation -S/p 125 mg methylprednisone in ED -Prednisone 40mg daily -Duonebs Q4 PRN 3) Infiltrates at left lung base -Levofloxacin 750 mg daily -Procalcitonin <0.05 3) DVT prophylaxis -SCD -5000U heparin SC Q8
--- NOTE | 2017-02-21 12:50 | CP.PCM.PN ---
Subjective - Date & Time of Evaluation Date of Evaluation: 02/21/17 Time of Evaluation: 12:46 - Subjective Subjective: Cardiothoracic Surgery Progress Note for Dr. Bonilla This patient was seen and examined this Am at bedside. No acute events to report overnight. Chest tube to water seal without any air leak. Output since yesterday is minimal. Pt had a CT chest shows bilateral emphasematous changes with superb chest tube placement. Objective - Vital Signs/Intake and Output Vital Signs (last 24 hours): Temp Pulse Resp BP Pulse Ox 97.9 F 79 12 106/76 92 L 02/21/17 12:00 02/21/17 12:00 02/21/17 12:00 02/21/17 12:00 02/21/17 12:00 Intake and Output: 02/21/17 02/21/17 06:59 18:59 Intake Total 100 390 Output Total 206 Balance -106 390 - Medications Medications: Current Medications Albuterol/Ipratropium (Duoneb 3 Mg/0.5 Mg (3 Ml) Ud) 3 ml INH RQ6 [facility] Last Admin: 02/21/17 07:50 Dose: 3 ml Heparin Sodium (Porcine) (Heparin) 5,000 units SC Q8 [facility] PRN Reason: Protocol Last Admin: 02/21/17 09:29 Dose: 5,000 units Levofloxacin/Dextrose (Levaquin 750mg) 750 mg in 150 mls @ 100 mls/hr IVPB DAILY [facility] PRN Reason: Protocol Last Admin: 02/21/17 09:30 Dose: 100 mls/hr Oxycodone/Acetaminophen (Percocet 5/325 Mg Tab) 1 tab PO Q4 PRN PRN Reason: Pain, moderate (4-7) Stop: 02/21/17 15:40 Last Admin: 02/21/17 06:09 Dose: 1 tab Prednisone (Prednisone Tab) 40 mg PO DAILY [facility] - Labs Labs: 02/21/17 04:40 02/21/17 04:40 APTT 31.5 Seconds (25.6-37.1) 02/20/17 04:40 - Constitutional Appears: Non-toxic, No Acute Distress - Head Exam Head Exam: ATRAUMATIC, NORMOCEPHALIC - Eye Exam Eye Exam: EOMI - ENT Exam ENT Exam: Mucous Membranes Moist - Respiratory Exam Respiratory Exam: NORMAL BREATHING PATTERN - Cardiovascular Exam Cardiovascular Exam: REGULAR RHYTHM, +S1 - GI/Abdominal Exam GI & Abdominal Exam: Soft. absent: Guarding, Rigid, Tenderness - Neurological Exam Neurological Exam: Alert, Awake, Oriented x3 - Psychiatric Exam Psychiatric exam: Normal Affect, Normal Mood - Skin Skin Exam: Dry, Intact Assessment and Plan - Assessment and Plan (Free Text) Assessment: 61M with tension pneumothorax s/p left chest tube placement on 02/18 CXR this AM shows expanded lung , CT chest shows exapnded lungs and emphasematous changes Keep Pleurovac on water seal Daily CXR Will consider D/C chest tube on POD4-5, if pneumothorax reoccurs pt may need pleurodesis. Discuss with Dr. Irene Sutherland PGY2
--- NOTE | 2017-02-21 13:40 | CP.PCM.PN ---
Subjective - Date & Time of Evaluation Date of Evaluation: 02/21/17 Time of Evaluation: 13:37 - Subjective Subjective: Patient sitting in bed in NAD on 3 liters NS Objective - Vital Signs/Intake and Output Vital Signs (last 24 hours): Temp Pulse Resp BP Pulse Ox 97.9 F 79 12 106/76 92 L 02/21/17 12:00 02/21/17 12:00 02/21/17 12:00 02/21/17 12:00 02/21/17 12:00 Intake and Output: 02/21/17 02/21/17 06:59 18:59 Intake Total 100 390 Output Total 206 Balance -106 390 - Medications Medications: Current Medications Albuterol/Ipratropium (Duoneb 3 Mg/0.5 Mg (3 Ml) Ud) 3 ml INH RQ6 [facility] Last Admin: 02/21/17 13:13 Dose: 3 ml Heparin Sodium (Porcine) (Heparin) 5,000 units SC Q8 [facility] PRN Reason: Protocol Last Admin: 02/21/17 09:29 Dose: 5,000 units Levofloxacin/Dextrose (Levaquin 750mg) 750 mg in 150 mls @ 100 mls/hr IVPB DAILY [facility] PRN Reason: Protocol Last Admin: 02/21/17 09:30 Dose: 100 mls/hr Oxycodone/Acetaminophen (Percocet 5/325 Mg Tab) 1 tab PO Q4 PRN PRN Reason: Pain, moderate (4-7) Stop: 02/21/17 15:40 Last Admin: 02/21/17 13:11 Dose: 1 tab Prednisone (Prednisone Tab) 40 mg PO DAILY [facility] Last Admin: 02/21/17 13:12 Dose: 40 mg - Labs Labs: 02/21/17 04:40 02/21/17 04:40 APTT 31.5 Seconds (25.6-37.1) 02/20/17 04:40 - Constitutional Appears: Well - Head Exam Head Exam: ATRAUMATIC, NORMAL INSPECTION, NORMOCEPHALIC - Respiratory Exam Respiratory Exam: Clear to Ausculation Bilateral, NORMAL BREATHING PATTERN. absent: Rales, Rhonchi - Cardiovascular Exam Cardiovascular Exam: REGULAR RHYTHM, +S1, +S2, +S4, Murmur - GI/Abdominal Exam GI & Abdominal Exam: Soft, Normal Bowel Sounds - Additional Findings Additional findings: left chest tube: no leakage Assessment and Plan - Assessment and Plan (Free Text) Plan: Spontaneous Pneumothorax: 2nd underlying emphysematous lung with large bullae, s /p chest tube by surgery -Emphysematous lung disease: continue supplementation to keep [id number], no signs of CO2 retention, mental status good. Avoid sedatives., continue bronchodilators and steroids, check influenza, check procalcitonine and lactic -contineu dvt/ppx -Patient remains hemodynamically stable -possible chest tube removal by surgery/Dr. Bonilla today.
--- NOTE | 2017-02-21 17:22 | RAD ---
HISTORY: portable COMPARISON: 02/21/2017 chest x-ray and CT chest 02/20/2017 FINDINGS: LUNGS: The vague patchy opacity right medial lung base consistent with atelectatic changes bullous emphysematous changes faintly perceived much more conspicuous on CT. PLEURA: No significant pleural effusion identified, no pneumothorax apparent. CARDIOVASCULAR: Normal. OSSEOUS STRUCTURES: No significant abnormalities. VISUALIZED UPPER ABDOMEN: Normal. OTHER FINDINGS: Left chest tube tip projects over the left upper lung zone -similar. No pneumothorax appreciated. Left subcutaneous emphysema as before IMPRESSION: Similar minimal medial right lower lobe atelectatic changes -more conspicuous on CT. Left chest tube tip positioning without evident pneumothorax. Similar left subcutaneous emphysema
[2017-02-22] MEDS: Albuterol-Ipratrop 3 mg / 0.5 (3 ml) UD INH SCH ×4 (01:01→19:40)
[2017-02-22 05:51] LABS: HEMOGLOBIN 14.3 g/dL (12.0-18.0); MEAN CELL VOLUME 99.8 fl (80.0-94.0); MEAN CORPUSCULAR HEMOGLOBIN 32.9 pg (27.0-31.0); RBC 4.34 Mil/uL (4.40-5.90); RED CELL DISTRIBUTION WIDTH 14.5 % (11.5-14.5); WHITE BLOOD COUNT 5.6 K/uL (4.8-10.8)
[2017-02-22 06:26] LABS: BLOOD UREA NITROGEN 15 mg/dl (9-20); CALCIUM 8.6 mg/dL (8.4-10.2); GFR AFRICAN-AMERICAN > 60; GFR NON-AFRICAN AMERICAN > 60
--- NOTE | 2017-02-22 08:18 | CP.PCM.PN ---
Subjective - Date & Time of Evaluation Date of Evaluation: 02/22/17 Time of Evaluation: 08:16 - Subjective Subjective: Cardiothoracic Surgery Progress Note for Dr. Bonilla This patient was seen and examined this Am at bedside. No acute events to report overnight. Chest tube to water seal without any air leak. Chest tube with minimal output, chest tube removed this AM and post pull chest tube ordered. Objective - Vital Signs/Intake and Output Vital Signs (last 24 hours): Temp Pulse Resp BP Pulse Ox 98.2 F 69 11 L 112/88 93 L 02/21/17 21:00 02/22/17 05:00 02/22/17 05:00 02/22/17 05:00 02/22/17 05:00 Intake and Output: 02/22/17 02/22/17 06:59 18:59 Output Total 1400 Balance -1400 - Medications Medications: Current Medications Acetaminophen (Tylenol 325mg Tab) 650 mg PO Q4 PRN PRN Reason: Pain, Mild (1-3) Albuterol/Ipratropium (Duoneb 3 Mg/0.5 Mg (3 Ml) Ud) 3 ml INH RQ6 [facility] Last Admin: 02/22/17 07:44 Dose: 3 ml Heparin Sodium (Porcine) (Heparin) 5,000 units SC Q8 [facility] PRN Reason: Protocol Last Admin: 02/22/17 01:44 Dose: 5,000 units Levofloxacin/Dextrose (Levaquin 750mg) 750 mg in 150 mls @ 100 mls/hr IVPB DAILY [facility] PRN Reason: Protocol Last Admin: 02/21/17 09:30 Dose: 100 mls/hr Ibuprofen (Motrin Tab) 400 mg PO Q4 PRN PRN Reason: Pain, moderate (4-7) Ibuprofen (Motrin Tab) 600 mg PO Q6 PRN PRN Reason: Pain, severe (8-10) Last Admin: 02/22/17 01:47 Dose: 600 mg Prednisone (Prednisone Tab) 40 mg PO DAILY [facility] Last Admin: 02/21/17 13:12 Dose: 40 mg - Labs Labs: 02/22/17 05:20 02/22/17 05:20 APTT 31.5 Seconds (25.6-37.1) 02/20/17 04:40 - Constitutional Appears: Non-toxic, No Acute Distress - Head Exam Head Exam: ATRAUMATIC, NORMOCEPHALIC - Eye Exam Eye Exam: EOMI - ENT Exam ENT Exam: Mucous Membranes Moist - Respiratory Exam Respiratory Exam: NORMAL BREATHING PATTERN - Cardiovascular Exam Cardiovascular Exam: REGULAR RHYTHM, +S1 - GI/Abdominal Exam GI & Abdominal Exam: Soft. absent: Guarding, Rigid, Tenderness - Neurological Exam Neurological Exam: Alert, Awake, Oriented x3 - Psychiatric Exam Psychiatric exam: Normal Affect, Normal Mood - Skin Skin Exam: Dry, Intact Assessment and Plan - Assessment and Plan (Free Text) Assessment: 61M with tension pneumothorax s/p left chest tube placement on 02/18 CT removed this AM F/U post pull CXR Monitor for 24 hours for recurrence of pneumothorax will repeat cxr in AM Discuss with Dr. Irene Sutherland PGY2
--- NOTE | 2017-02-22 08:36 | RAD ---
HISTORY: portable COMPARISON: Portable chest 02/13/2017. FINDINGS: Left chest tube is unchanged in position. No pneumothorax identify bilaterally or pleural effusions. LUNGS: Reticular markings remain somewhat prominent the bases however there is no alveolitis appreciated bilaterally. CARDIOVASCULAR: Normal. OSSEOUS STRUCTURES: No significant abnormalities. VISUALIZED UPPER ABDOMEN: Normal. OTHER FINDINGS: None. IMPRESSION: Stable left chest tube placement. No interval pneumothorax or pleural effusion bilaterally. Prominent reticular markings in the bilateral bases versus vascular overlap. The remainder of the examination appears unremarkable.
[2017-02-22] MEDS: levoFLOXacin 750 mg in D5W 750 MG/150 ML BAG IVPB SCH (10:26)
--- NOTE | 2017-02-22 11:18 | RAD ---
PROCEDURE: CHEST RADIOGRAPH, 1 VIEW HISTORY: CT removal COMPARISON: Comparison chest dated 02/22/2017. Comparison also made with CT scan chest 02/20/2017. FINDINGS: Interval removal left-sided chest tube. . LUNGS: No obvious pneumothorax. . Previously noted large bulla left medial lung apex and significant emphysematous changes upper lobe predominance less well seen compared to high-resolution CT chest. . PLEURA: As above. CARDIOVASCULAR: Normal. OSSEOUS STRUCTURES: No significant abnormalities. VISUALIZED UPPER ABDOMEN: Normal. OTHER FINDINGS: None. IMPRESSION: Interval removal left-sided chest tube. No obvious pneumothorax. Previously noted large bulla left medial lung apex and extensive emphysematous changes upper lobe predominance less well seen when compared with prior CT scan chest.
--- NOTE | 2017-02-22 12:14 | CP.PCM.PN ---
Subjective - Date & Time of Evaluation Date of Evaluation: 02/22/17 Time of Evaluation: 12:13 - Subjective Subjective: NO SOB PNEUMOTHORAX RESOLVED ON CXR WILL CONTINUE RX PER SURGICAL TEAM WILL CONTINUE TO FOLLOW WITH YOU Objective - Vital Signs/Intake and Output Vital Signs (last 24 hours): Temp Pulse Resp BP Pulse Ox 98.1 F 92 H 14 126/80 95 02/22/17 08:00 02/22/17 08:39 02/22/17 08:00 02/22/17 08:00 02/22/17 08:00 Intake and Output: 02/22/17 02/22/17 06:59 18:59 Intake Total 390 Output Total 1400 400 Balance -1400 -10 - Medications Medications: Current Medications Acetaminophen (Tylenol 325mg Tab) 650 mg PO Q4 PRN PRN Reason: Pain, Mild (1-3) Albuterol/Ipratropium (Duoneb 3 Mg/0.5 Mg (3 Ml) Ud) 3 ml INH RQ6 [facility] Last Admin: 02/22/17 07:44 Dose: 3 ml Heparin Sodium (Porcine) (Heparin) 5,000 units SC Q8 [facility] PRN Reason: Protocol Last Admin: 02/22/17 10:26 Dose: 5,000 units Levofloxacin/Dextrose (Levaquin 750mg) 750 mg in 150 mls @ 100 mls/hr IVPB DAILY [facility] PRN Reason: Protocol Last Admin: 02/22/17 10:26 Dose: 100 mls/hr Ibuprofen (Motrin Tab) 400 mg PO Q4 PRN PRN Reason: Pain, moderate (4-7) Ibuprofen (Motrin Tab) 600 mg PO Q6 PRN PRN Reason: Pain, severe (8-10) Last Admin: 02/22/17 01:47 Dose: 600 mg Prednisone (Prednisone Tab) 40 mg PO DAILY [facility] Last Admin: 02/22/17 10:27 Dose: 40 mg - Labs Labs: 02/22/17 05:20 02/22/17 05:20 APTT 31.5 Seconds (25.6-37.1) 02/20/17 04:40
--- NOTE | 2017-02-22 12:20 | CP.PCM.PN ---
Subjective - Date & Time of Evaluation Date of Evaluation: 02/22/17 Time of Evaluation: 07:45 - Subjective Subjective: Patient seen and evaluated at bedside; no acute events overnight. Seen by surgery team earlier this morning, chest tube pulled without complications. Dressing in place over chest tube site. Pt has no new issues or complaints. Denies further shortness of breath, chest pain, dizziness, abdominal discomfort , leg/calf pain/swelling. Objective - Vital Signs/Intake and Output Vital Signs (last 24 hours): Temp Pulse Resp BP Pulse Ox 97.7 F 81 18 129/74 95 02/22/17 12:15 02/22/17 12:15 02/22/17 12:15 02/22/17 12:15 02/22/17 12:15 Intake and Output: 02/22/17 02/22/17 06:59 18:59 Intake Total 390 Output Total 1400 400 Balance -1400 -10 - Medications Medications: Current Medications Acetaminophen (Tylenol 325mg Tab) 650 mg PO Q4 PRN PRN Reason: Pain, Mild (1-3) Albuterol/Ipratropium (Duoneb 3 Mg/0.5 Mg (3 Ml) Ud) 3 ml INH RQ6 [facility] Last Admin: 02/22/17 07:44 Dose: 3 ml Heparin Sodium (Porcine) (Heparin) 5,000 units SC Q8 [facility] PRN Reason: Protocol Last Admin: 02/22/17 10:26 Dose: 5,000 units Levofloxacin/Dextrose (Levaquin 750mg) 750 mg in 150 mls @ 100 mls/hr IVPB DAILY [facility] PRN Reason: Protocol Last Admin: 02/22/17 10:26 Dose: 100 mls/hr Ibuprofen (Motrin Tab) 400 mg PO Q4 PRN PRN Reason: Pain, moderate (4-7) Ibuprofen (Motrin Tab) 600 mg PO Q6 PRN PRN Reason: Pain, severe (8-10) Last Admin: 02/22/17 01:47 Dose: 600 mg Prednisone (Prednisone Tab) 40 mg PO DAILY [facility] Last Admin: 02/22/17 10:27 Dose: 40 mg - Labs Labs: 02/22/17 05:20 02/22/17 05:20 APTT 31.5 Seconds (25.6-37.1) 02/20/17 04:40 - Constitutional Appears: Non-toxic - Head Exam Head Exam: NORMAL INSPECTION, NORMOCEPHALIC - Eye Exam Eye Exam: EOMI, Normal appearance - ENT Exam ENT Exam: Mucous Membranes Moist - Neck Exam Neck Exam: Full ROM, Normal Inspection - Respiratory Exam Respiratory Exam: NORMAL BREATHING PATTERN Additional comments: continues to have coarse lung sounds, equal bilaterally and throughout - Cardiovascular Exam Cardiovascular Exam: REGULAR RHYTHM, +S1, +S2 - GI/Abdominal Exam GI & Abdominal Exam: Soft, Normal Bowel Sounds - Back Exam Back Exam: NORMAL INSPECTION. absent: vertebral tenderness - Neurological Exam Neurological Exam: Alert, Awake - Skin Skin Exam: Dry, Warm Assessment and Plan - Assessment and Plan (Free Text) Assessment: 61 yo M with hx COPD, admitted for left sided pneumothorax that has since resolved; s/p chest tube removal this am. Plan: 1) Left-sided Pneumothorax -Seen on Chest CT and CXR done in ED -General surgery: left sided chest tube placed in ED by gen surg; removed this AM -Daily X-rays have been showing re-expansion of lung; CXR this am post removal -General surgery recommendation to keep pt for 24 hrs to monitor for recurrence -Pulmonology following, no new recommendations at this time -Motrin 400 mg Q4 PRN -Acetaminophen 650 mh Q4 PRN 2) COPD exacerbation -S/p 125 mg methylprednisone in ED -Prednisone 40mg daily -Duonebs Q4 PRN 3) Asthma -History of asthma in childhood -Start Montelukast 5mg PO daily 3) Infiltrates at left lung base -Levofloxacin 750 mg daily -Procalcitonin <0.05 3) DVT prophylaxis -SCD -5000U heparin SC Q8
[2017-02-23] MEDS: Albuterol-Ipratrop 3 mg / 0.5 (3 ml) UD INH SCH ×4 (00:59→19:21)
--- NOTE | 2017-02-23 07:40 | CP.PCM.PN ---
Subjective - Date & Time of Evaluation Date of Evaluation: 02/23/17 Time of Evaluation: 07:38 - Subjective Subjective: Cardiothoracic Surgery Progress Note for Dr. Baltazar Shepard, PGY-1 Pt S & E at bedside. Pt reports some pain when trying to lay on left side/side with chest tube dressing. Denies SOB, chest pain, N & V, F & C, other complaints. Objective - Vital Signs/Intake and Output Vital Signs (last 24 hours): Temp Pulse Resp BP Pulse Ox 97.4 F L 58 L 18 131/80 93 L 02/23/17 04:37 02/23/17 04:37 02/23/17 04:37 02/23/17 04:37 02/23/17 04:37 Intake and Output: 02/23/17 02/23/17 06:59 18:59 Intake Total 500 Output Total 600 Balance -100 - Medications Medications: Current Medications Acetaminophen (Tylenol 325mg Tab) 650 mg PO Q4 PRN PRN Reason: Pain, Mild (1-3) Albuterol/Ipratropium (Duoneb 3 Mg/0.5 Mg (3 Ml) Ud) 3 ml INH RQ6 [facility] Last Admin: 02/23/17 07:31 Dose: 3 ml Heparin Sodium (Porcine) (Heparin) 5,000 units SC Q8 JAIDA PRN Reason: Protocol Last Admin: 02/23/17 00:18 Dose: 5,000 units Levofloxacin/Dextrose (Levaquin 750mg) 750 mg in 150 mls @ 100 mls/hr IVPB DAILY JAIDA PRN Reason: Protocol Last Admin: 02/22/17 10:26 Dose: 100 mls/hr Ibuprofen (Motrin Tab) 400 mg PO Q4 PRN PRN Reason: Pain, moderate (4-7) Ibuprofen (Motrin Tab) 600 mg PO Q6 PRN PRN Reason: Pain, severe (8-10) Last Admin: 02/22/17 01:47 Dose: 600 mg Montelukast Sodium (Singulair) 10 mg PO DAILY [facility] Prednisone (Prednisone Tab) 40 mg PO DAILY [facility] Last Admin: 02/22/17 10:27 Dose: 40 mg - Labs Labs: 02/22/17 05:20 02/22/17 05:20 APTT 31.5 Seconds (25.6-37.1) 02/20/17 04:40 - Constitutional Appears: Non-toxic, No Acute Distress - Head Exam Head Exam: ATRAUMATIC, NORMAL INSPECTION, NORMOCEPHALIC - Eye Exam Eye Exam: EOMI, Normal appearance - ENT Exam ENT Exam: Mucous Membranes Moist, Normal Exam - Neck Exam Neck Exam: Full ROM, Normal Inspection - Respiratory Exam Respiratory Exam: Clear to Ausculation Bilateral, NORMAL BREATHING PATTERN. absent: Decreased Breath Sounds, Rales, Rhonchi, Wheezes, Respiratory Distress, Stridor - Cardiovascular Exam Cardiovascular Exam: REGULAR RHYTHM, +S1, +S2 - GI/Abdominal Exam GI & Abdominal Exam: Soft, Normal Bowel Sounds. absent: Distended, Firm, Guarding, Rigid, Tenderness - Extremities Exam Extremities Exam: Full ROM, Normal Inspection. absent: Pedal Edema - Neurological Exam Neurological Exam: Alert, Awake, CN II-XII Intact, Oriented x3 - Psychiatric Exam Psychiatric exam: Normal Affect, Normal Mood - Skin Skin Exam: Dry, Intact, Normal Color, Warm Additional comments: Left side dressing clean/dry/intact Assessment and Plan - Assessment and Plan (Free Text) Assessment: 61M with tension pneumothorax s/p left chest tube placement on 02/18, CT removed on 02/22 Plan: CXR post pull and this AM neg for pneumothorax Pt stable for discharge home from CT surgery standpoint Return to hospital if symptoms recur Further mgmt as per primary team POLA attending Drea, PGY-1
[2017-02-23] MEDS: levoFLOXacin 750 mg in D5W 750 MG/150 ML BAG IVPB SCH (09:00)
--- NOTE | 2017-02-23 10:54 | RAD ---
PROCEDURE: CHEST RADIOGRAPH, 1 VIEW HISTORY: post CT eval COMPARISON: 02/22/2017 FINDINGS: LUNGS: Emphysematous change. No consolidation. Linear scar/ atelectasis medial right lung base. PLEURA: No pneumothorax or pleural fluid seen. CARDIOVASCULAR: Normal. OSSEOUS STRUCTURES: No significant abnormalities. VISUALIZED UPPER ABDOMEN: Normal. OTHER FINDINGS: None. IMPRESSION: No acute infiltrate.
--- NOTE | 2017-02-23 12:17 | CP.PCM.PN ---
Subjective - Date & Time of Evaluation Date of Evaluation: 02/23/17 Time of Evaluation: 12:17 - Subjective Subjective: FEELS BETTER NO SOB CHEST TUBE REMOVED Objective - Vital Signs/Intake and Output Vital Signs (last 24 hours): Temp Pulse Resp BP Pulse Ox 97.5 F L 66 18 106/68 94 L 02/23/17 08:28 02/23/17 08:28 02/23/17 08:28 02/23/17 08:28 02/23/17 08:28 Intake and Output: 02/23/17 02/23/17 06:59 18:59 Intake Total 500 Output Total 600 Balance -100 - Medications Medications: Current Medications Acetaminophen (Tylenol 325mg Tab) 650 mg PO Q4 PRN PRN Reason: Pain, Mild (1-3) Albuterol/Ipratropium (Duoneb 3 Mg/0.5 Mg (3 Ml) Ud) 3 ml INH RQ6 [facility] Last Admin: 02/23/17 07:31 Dose: 3 ml Heparin Sodium (Porcine) (Heparin) 5,000 units SC Q8 JAIDA PRN Reason: Protocol Last Admin: 02/23/17 09:01 Dose: 5,000 units Levofloxacin/Dextrose (Levaquin 750mg) 750 mg in 150 mls @ 100 mls/hr IVPB DAILY JAIDA PRN Reason: Protocol Last Admin: 02/23/17 09:00 Dose: 100 mls/hr Ibuprofen (Motrin Tab) 400 mg PO Q4 PRN PRN Reason: Pain, moderate (4-7) Ibuprofen (Motrin Tab) 600 mg PO Q6 PRN PRN Reason: Pain, severe (8-10) Last Admin: 02/22/17 01:47 Dose: 600 mg Montelukast Sodium (Singulair) 10 mg PO DAILY [facility] Last Admin: 02/23/17 09:02 Dose: 10 mg Prednisone (Prednisone Tab) 40 mg PO DAILY [facility] Last Admin: 02/23/17 09:01 Dose: 40 mg - Labs Labs: 02/22/17 05:20 02/22/17 05:20 APTT 31.5 Seconds (25.6-37.1) 02/20/17 04:40 - Constitutional Appears: No Acute Distress - Head Exam Head Exam: ATRAUMATIC, NORMAL INSPECTION, NORMOCEPHALIC - Eye Exam Eye Exam: EOMI, Normal appearance, PERRL Pupil Exam: NORMAL ACCOMODATION, PERRL - ENT Exam ENT Exam: Mucous Membranes Moist, Normal Exam - Neck Exam Neck Exam: Full ROM, Normal Inspection. absent: Lymphadenopathy - Respiratory Exam Respiratory Exam: Decreased Breath Sounds, Prolonged Expiratory Phase, NORMAL BREATHING PATTERN - Cardiovascular Exam Cardiovascular Exam: REGULAR RHYTHM, +S1, +S2. absent: Murmur - GI/Abdominal Exam GI & Abdominal Exam: Soft, Normal Bowel Sounds. absent: Tenderness - Rectal Exam Rectal Exam: NORMAL INSPECTION - Extremities Exam Extremities Exam: Full ROM, Normal Capillary Refill, Normal Inspection. absent : Joint Swelling, Pedal Edema - Back Exam Back Exam: NORMAL INSPECTION - Neurological Exam Neurological Exam: Alert, Awake, CN II-XII Intact, Normal Gait, Oriented x3 - Psychiatric Exam Psychiatric exam: Normal Affect, Normal Mood - Skin Skin Exam: Dry, Intact, Normal Color, Warm Assessment and Plan - Assessment and Plan (Free Text) Assessment: COPD WITH SPONTANEOUS PNEUMOTHORAX[RESOLVED] EMPHYSEMATOUS BLEBS Plan: NO FURTHER PULMONARY INTERVENTIONS FOR NOW WILL SIGN OFF CASE AND SEE AGAIN AT YOUR REQUEST
--- NOTE | 2017-02-23 12:56 | CP.PCM.PN ---
Subjective - Date & Time of Evaluation Date of Evaluation: 02/23/17 Time of Evaluation: 12:54 - Subjective Subjective: CC: s/p pneumothorax. Seen and examined at bedside, doing well this AM. NAOE. Denies cp, but states some soreness on left side while coughing. Some SOB while walking. No syncope, dizziness, n/v/and pain/focal weakness Objective - Vital Signs/Intake and Output Vital Signs (last 24 hours): Temp Pulse Resp BP Pulse Ox 97.6 F 80 18 108/71 97 02/23/17 12:27 02/23/17 12:27 02/23/17 12:27 02/23/17 12:27 02/23/17 12:27 Intake and Output: 02/23/17 02/23/17 06:59 18:59 Intake Total 500 Output Total 600 Balance -100 - Medications Medications: Current Medications Acetaminophen (Tylenol 325mg Tab) 650 mg PO Q4 PRN PRN Reason: Pain, Mild (1-3) Albuterol/Ipratropium (Duoneb 3 Mg/0.5 Mg (3 Ml) Ud) 3 ml INH RQ6 [facility] Last Admin: 02/23/17 07:31 Dose: 3 ml Heparin Sodium (Porcine) (Heparin) 5,000 units SC Q8 JAIDA PRN Reason: Protocol Last Admin: 02/23/17 09:01 Dose: 5,000 units Levofloxacin/Dextrose (Levaquin 750mg) 750 mg in 150 mls @ 100 mls/hr IVPB DAILY JAIDA PRN Reason: Protocol Last Admin: 02/23/17 09:00 Dose: 100 mls/hr Ibuprofen (Motrin Tab) 400 mg PO Q4 PRN PRN Reason: Pain, moderate (4-7) Ibuprofen (Motrin Tab) 600 mg PO Q6 PRN PRN Reason: Pain, severe (8-10) Last Admin: 02/22/17 01:47 Dose: 600 mg Montelukast Sodium (Singulair) 10 mg PO DAILY [facility] Last Admin: 02/23/17 09:02 Dose: 10 mg Prednisone (Prednisone Tab) 40 mg PO DAILY [facility] Last Admin: 02/23/17 09:01 Dose: 40 mg - Labs Labs: 02/22/17 05:20 02/22/17 05:20 APTT 31.5 Seconds (25.6-37.1) 02/20/17 04:40 - Constitutional Appears: No Acute Distress, Cachectic, Chronically Ill - Head Exam Head Exam: ATRAUMATIC - Eye Exam Eye Exam: EOMI - ENT Exam ENT Exam: Mucous Membranes Moist - Neck Exam Neck Exam: Full ROM - Respiratory Exam Respiratory Exam: Chest Wall Tenderness (on left side s/p chest tube removal ), Rhonchi. absent: Accessory Muscle Use - Cardiovascular Exam Cardiovascular Exam: +S1, +S2 - GI/Abdominal Exam GI & Abdominal Exam: Soft, Normal Bowel Sounds. absent: Tenderness - Neurological Exam Neurological Exam: Alert, Awake, Oriented x3 - Psychiatric Exam Psychiatric exam: Normal Affect, Normal Mood - Skin Skin Exam: Dry, Warm Assessment and Plan - Assessment and Plan (Free Text) Plan: 61 yo M with hx COPD, admitted for left sided pneumothorax that has since resolved; s/p chest tube removal. Plan: Left-sided Pneumothorax -Seen on Chest CT and CXR done in ED -General surgery: left sided chest tube placed in ED by gen surg; removed this AM -Daily X-rays have been showing re-expansion of lung; CXR this am post removal -General surgery input appreciated -Pulmonology no new recommendations at this time -Motrin 400 mg Q4 PRN -Acetaminophen 650 mh Q4 PRN - start PT/OT for deconditioning COPD exacerbation -S/p 125 mg methylprednisone in ED -Prednisone 40mg daily -Duonebs Q4 PRN Asthma -History of asthma in childhood -Montelukast 10 mg PO daily Infiltrates at left lung base -Levofloxacin 750 mg daily -Procalcitonin <0.05 DVT prophylaxis -SCD -5000U heparin SC Q8
[2017-02-24] MEDS: Albuterol-Ipratrop 3 mg / 0.5 (3 ml) UD INH SCH ×3 (01:03→13:14)
[2017-02-24 01:05] VITALS: RESP 18
[2017-02-24] MEDS: levoFLOXacin 750 mg in D5W 750 MG/150 ML BAG IVPB SCH (08:25)
[2017-02-24 08:30] VITALS: O2SAT 95
--- NOTE | 2017-02-24 11:11 | CP.PCM.DIS ---
Provider - Provider Date of Admission: 02/18/17 11:36 Attending physician: Luz Arguelles MD [facility] Consults: Intensive Care General Surgery Pulmonology Time Spent in preparation of Discharge (in minutes): 30 Diagnosis - Discharge Diagnosis (1) COPD exacerbation Status: Acute (2) Pneumothorax Status: Resolved Hospital Course - Lab Results Lab Results: Micro Results 02/22/17 10:00 Nose MRSA Culture (Admit) - Final MRSA NOT DETECTED 02/18/17 09:50 Blood-Venous Blood Culture - Final NO GROWTH AFTER 5 DAYS 02/18/17 09:50 Blood-Venous Gram Stain - Final TEST NOT PERFORMED 02/18/17 14:48 Nose MRSA Culture (Admit) - Final MRSA NOT DETECTED Most Recent Lab Values WBC 5.6 K/uL (4.8-10.8) 02/22/17 05:20 RBC 4.34 Mil/uL (4.40-5.90) L 02/22/17 05:20 Hgb 14.3 g/dL (12.0-18.0) 02/22/17 05:20 Hct 43.3 % (35.0-51.0) 02/22/17 05:20 MCV 99.8 fl (80.0-94.0) H 02/22/17 05:20 MCH 32.9 pg (27.0-31.0) H 02/22/17 05:20 MCHC 33.0 g/dL (33.0-37.0) 02/22/17 05:20 RDW 14.5 % (11.5-14.5) 02/22/17 05:20 Plt Count 179 K/uL (130-400) 02/22/17 05:20 MPV 8.9 fl (7.2-11.7) 02/19/17 05:20 Neut % (Auto) 73.4 % (50.0-75.0) 02/19/17 05:20 Lymph % (Auto) 10.3 % (20.0-40.0) L 02/19/17 05:20 [place] % (Auto) 15.9 % (0.0-10.0) H 02/19/17 05:20 Eos % (Auto) 0.1 % (0.0-4.0) 02/19/17 05:20 Baso % (Auto) 0.3 % (0.0-2.0) 02/19/17 05:20 Neut # 4.3 K/uL (1.8-7.0) 02/19/17 05:20 Lymph # 0.6 K/uL (1.0-4.3) L 02/19/17 05:20 [place] # 0.9 K/uL (0.0-0.8) H 02/19/17 05:20 Eos # 0.0 K/uL (0.0-0.7) 02/19/17 05:20 Baso # 0.0 K/uL (0.0-0.2) 02/19/17 05:20 APTT 31.5 Seconds (25.6-37.1) 02/20/17 04:40 pCO2 57 mm/Hg (35-45) H 02/18/17 16:59 pO2 80 mm/Hg (80-100) 02/18/17 16:59 HCO3 28.5 mmol/L (21-28) H 02/18/17 16:59 ABG pH 7.36 (7.35-7.45) 02/18/17 16:59 ABG Total CO2 33.9 mmol/L (22-28) H 02/18/17 16:59 ABG O2 Saturation 97.6 % (95-98) 02/18/17 16:59 ABG O2 Content 21.0 ML/dL (15-23) 02/18/17 16:59 ABG Base Excess 4.8 mmol/L (-2.0-3.0) H 02/18/17 16:59 ABG Hemoglobin 15.9 g/dL (11.7-17.4) 02/18/17 16:59 ABG Carboxyhemoglobin 2.7 % (0.5-1.5) H 02/18/17 16:59 POC ABG HHb (Measured) 2.3 % (0.0-5.0) 02/18/17 16:59 ABG Methemoglobin 1.3 % (0.0-3.0) 02/18/17 16:59 ABG O2 Capacity 21.5 mL/dL (16-24) 02/18/17 16:59 Tone Test Yes 02/18/17 16:59 VBG pH 7.33 (7.32-7.43) 02/18/17 09:44 VBG pCO2 69 mmHg (40-60) H* 02/18/17 09:44 VBG HCO3 28.0 mmol/L 02/18/17 09:44 VBG Total CO2 38.5 mmol/L (22-28) H 02/18/17 09:44 VBG O2 Sat (Calc) 37.7 % (40-65) L 02/18/17 09:44 VBG Base Excess 6.9 mmol/L (0.0-2.0) H 02/18/17 09:44 VBG Potassium 5.3 mmol/L (3.6-5.2) H 02/18/17 09:44 A-a O2 Difference 562.0 mm/Hg 02/18/17 16:59 Hgb O2 Saturation 93.7 % (95.0-98.0) L 02/18/17 16:59 Sodium 132.0 mmol/L (132-148) 02/18/17 09:44 Chloride 92.0 mmol/L (98-107) L 02/18/17 09:44 Glucose 146 mg/dL (75-110) H 02/18/17 09:44 Lactate 1.7 mmol/L (0.7-2.1) 02/18/17 09:44 Liter Flow 3 02/18/17 09:44 FiO2 100.0 % 02/18/17 16:59 Blood Gas Comments 3l, nc 02/18/17 09:44 Crit Value Called To Kelsie lawrence 02/18/17 09:44 Crit Value Called By Anni 02/18/17 09:44 Crit Value Read Back Y 02/18/17 09:44 Blood Gas Notified Time 1010 02/18/17 09:44 Sodium 134 mmol/l (132-148) 02/22/17 05:20 Potassium 4.0 MMOL/L (3.6-5.0) 02/22/17 05:20 Chloride 99 mmol/L (98-107) 02/22/17 05:20 Carbon Dioxide 32 mmol/L (22-30) H 02/22/17 05:20 Anion Gap 7 (10-20) L 02/22/17 05:20 BUN 15 mg/dl (9-20) 02/22/17 05:20 Creatinine 0.7 mg/dl (0.8-1.5) L 02/22/17 05:20 Est GFR ( Amer) > 60 02/22/17 05:20 Est GFR (Non-Af Amer) > 60 02/22/17 05:20 Random Glucose 143 mg/dL (75-110) H 02/22/17 05:20 Calcium 8.6 mg/dL (8.4-10.2) 02/22/17 05:20 Total Bilirubin 0.5 mg/dl (0.2-1.3) 02/20/17 04:40 AST 39 U/L (17-59) 02/20/17 04:40 ALT 35 U/L (21-72) 02/20/17 04:40 Alkaline Phosphatase 67 U/L (38-126) 02/20/17 04:40 Troponin I < 0.0120 ng/mL (0.00-0.120) 02/18/17 10:03 NT-Pro-B Natriuret Pep 227 pg/ml (0-900) 02/19/17 05:20 Total Protein 6.6 G/DL (6.3-8.2) 02/20/17 04:40 Albumin 3.5 g/dL (3.5-5.0) 02/20/17 04:40 Globulin 3.1 gm/dL (2.2-3.9) 02/20/17 04:40 Albumin/Globulin Ratio 1.1 (1.0-2.1) 02/20/17 04:40 Procalcitonin < 0.05 NG/ML (0.19-0.49) L 02/19/17 05:20 Venous Blood Potassium 5.3 mmol/L (3.6-5.2) H 02/18/17 09:44 Urine Opiates Screen Positive (NEGATIVE) H 02/18/17 18:51 Urine Methadone Screen Negative (NEGATIVE) 02/18/17 18:51 Ur Barbiturates Screen Negative (NEGATIVE) 02/18/17 18:51 Ur Phencyclidine Scrn Negative (NEGATIVE) 02/18/17 18:51 Ur Amphetamines Screen Negative (NEGATIVE) 02/18/17 18:51 U Benzodiazepines Scrn Negative (NEGATIVE) 02/18/17 18:51 U Oth Cocaine Metabols Negative (NEGATIVE) 02/18/17 18:51 U Cannabinoids Screen Negative (NEGATIVE) 02/18/17 18:51 Alcohol, Quantitative < 10 mg/dl (0-10) 02/18/17 09:50 Influenza Typ A,B (EIA) Negative for flu a/b (NEGATIVE) 02/18/17 14:48 - Hospital Course Hospital Course: 61 yo male with pmh COPD,emphysema, polysubstance abuse, noncompliance with medication, homelessness presented to the ED with 2 days duration worsening shortness of breath and left sided chest pain/discomfort. He was found to have large left pneumothorax on CXR and chest CT; was admitted due to pneumothorax which is suspected to have occurred due to burst bulla, caused by COPD. Intensive care, pulmology and general surgery were consulted. General surgery placed left sided chest tube; pneumothorax resolved and lung was seen as re- expanded on further Xrays. Chest tube stayed in place for 5 days; was removed on POD 5, and pt was monitored for recurrence of pneumothorax, which did not occur. During his admission, he was also medicated with levofloxacin 750 mg daily, scheduled duoneb breathing treatments, and prednisone 40 mg daily, after receiving 125 mg methylprednisone in the ED. Mr. Arreaga will be discharged with prescriptions for a Spiriva inhaler once daily, an albuterol rescue inhaler as needed, and a prescription for Singulair 10 mg daily. He was asked to follow up in at the [facility] on Monday 02/27 after 2 pm, or on 02/28 before 1 pm at his convenience, as he does not have a number he can be reached at, or ready ability to call and reschedule. Discharge Exam - Head Exam Head Exam: NORMOCEPHALIC - Eye Exam Eye Exam: EOMI, Normal appearance - ENT Exam ENT Exam: Normal External Ear Exam - Neck Exam Neck exam: Full Rom - Respiratory Exam Respiratory Exam: NORMAL BREATHING PATTERN. absent: Accessory Muscle Use, Respiratory Distress Additional comments: bilateral lung sounds that have improved since re-expansion of lung s/p chest tube air movement bilaterally to bases - Cardiovascular Exam Cardiovascular Exam: REGULAR RHYTHM, +S1, +S2 - GI/Abdominal Exam GI & Abdominal Exam: Normal Bowel Sounds, Soft - Extremities Exam Extremities exam: full ROM Additional comments: long toenails - Back Exam Back exam: NORMAL INSPECTION - Neurological Exam Neurological exam: Alert, Oriented x3 - Psychiatric Exam Psychiatric exam: Normal Affect - Skin Skin Exam: Dry, Intact Discharge Plan - Discharge Medications Prescriptions: Albuterol HFA [Ventolin HFA 90 mcg/actuation (8 g)] 2 puff IH [id number] #[id number] inhaler Montelukast [Singulair] 10 mg PO DAILY #30 tab Tiotropium [place] Inhaler [Spiriva Inhalation Handihaler Device] 18 inhaler INH DAILY 30 Days #1 inhaler - Follow Up Plan Condition: FAIR Disposition: HOME/ ROUTINE Patient education suggested?: Yes Instructions: Spontaneous Pneumothorax (DC), COPD (Chronic Obstructive Pulmonary Disease) (DC) Additional Instructions: Please take medications as prescribed; use spiriva inhaler once daily, take singulair once daily, and use albuterol inhaler as needed, as often as every six hours. Please come to see your PCP at the [facility] on 1/3 after 2 pm , or on 02/28 before 1 pm. Please return to ED if symptoms worsen or return.
[2017-02-24 13:01] VITALS: BP 117/73; PULSE 67; TEMP 97.5
== END 2017-02-24 14:00 | disposition home or self-care (01) | DRG 94 ==
LOC: H.ER 08:42 → H.ERHOLD 11:36 → H.ICU/CCU 13:49 → H.TEL 02-22 11:24
PROVIDERS: ADMIT Family Medicine Geriatric Medicine; ATTEND Family Medicine Geriatric Medicine
PROC: 0W9B30Z Drainage of Left Pleural Cavity with Drainage Device, Percutaneous Approach (ICD-10-PCS; principal; 2017-02-18)
PROC: 3E0234Z Introduction of Serum, Toxoid and Vaccine into Muscle, Percutaneous Approach (ICD-10-PCS; 2017-02-18)
DX: J93.83 Other pneumothorax (principal); J44.1 Chronic obstructive pulmonary disease with (acute) exacerbation; J93.0 Spontaneous tension pneumothorax; J98.11 Atelectasis; F10.10 Alcohol abuse, uncomplicated; F17.210 Nicotine dependence, cigarettes, uncomplicated; I73.9 Peripheral vascular disease, unspecified; Z59.0 Homelessness; Z79.899 Other long term (current) drug therapy; Z87.01 Personal history of pneumonia (recurrent); Z91.14 Patient's other noncompliance with medication regimen; Z91.19 Patient's noncompliance with other medical treatment and regimen; F19.10 Other psychoactive substance abuse, uncomplicated; K40.90 Unilateral inguinal hernia, without obstruction or gangrene, not specified as recurrent; K44.9 Diaphragmatic hernia without obstruction or gangrene; M54.9 Dorsalgia, unspecified; Z23 Encounter for immunization; Z88.0 Allergy status to penicillin

== ENCOUNTER 2017-04-06 21:58 | Emergency (ER) | payer MEDICAID ==
[2017-04-06 21:59] VITALS: BMI 21.4
[2017-04-06 22:05] VITALS: BP 137/64; PULSE 67; RESP 16; TEMP 98; O2SAT 100
--- NOTE | 2017-04-06 22:47 | ED PDOC ---
HPI: General Adult Time Seen by Provider: 04/06/17 22:29 Chief Complaint (Nursing): Lower Extremity Problem/Injury Chief Complaint (Provider): leg pain History Per: Patient Additional Complaint(s): 61-year-old male presents to emergency department with pain to both legs. Patient is a non-domiciled male. He states that the other reason he came to ED is because it is too cold outside. Patient denies any recent fall or trauma, denies any fever or chills. PMD: none Past Medical History Reviewed: Historical Data, Nursing Documentation, Vital Signs Vital Signs: Last Vital Signs Temp 98.0 F 04/06/17 22:03 Pulse 67 04/06/17 22:03 Resp 16 04/06/17 22:03 BP 137/64 04/06/17 22:03 Pulse Ox 100 04/06/17 22:47 - Medical History PMH: Asthma, Bronchitis, Hiatal Hernia (inguinal), Pneumonia - Surgical History Surgical History: Hernia Repair - Family History Family History: States: No Known Family Hx - Living Arrangements Living Arrangements: Other (non-domiciled) - Immunization History Hx Tetanus Toxoid Vaccination: No Hx Influenza Vaccination: No Hx Pneumococcal Vaccination: No - Home Medications Home Medications: Ambulatory Orders Medication Instructions Recorded Albuterol HFA [Ventolin HFA 90 2 puff IH [id number] #1 inhaler 02/24/17 mcg/actuation (8 g)] Montelukast [Singulair] 10 mg PO DAILY #30 tab 02/24/17 Tiotropium [place] Inhaler 18 inhaler INH DAILY 30 Days #1 02/24/17 [Spiriva Inhalation Handihaler inhaler Device] Ammonium Lactate 12% [Lac-Hydrin 1 ea TOP Q8 30 Days tube 03/05/17 12% Cream (140 g)] Aspirin [Aspirin Chewable] 81 mg PO DAILY 30 Days chew 03/05/17 Atorvastatin [Lipitor] 40 mg PO DAILY 30 Days tab 03/05/17 Lidocaine 5% [Lidoderm] 1 ea TD DAILY 30 Days patch 03/05/17 Lidocaine 5% [Lidoderm] 1 ea TD DAILY 30 Days patch 03/05/17 - Allergies Allergies/Adverse Reactions: Allergies Allergy/AdvReac Type Severity Reaction Status Date / Time Penicillins Allergy RASH Verified 04/06/17 22:03 Review of Systems ROS Statement: Except As Marked, All Systems Reviewed And Found Negative Constitutional: Negative for: Fever, Chills Musculoskeletal: Positive for: Leg Pain Physical Exam - Reviewed Nursing Documentation Reviewed: Yes Vital Signs Reviewed: Yes - Physical Exam Appears: Positive for: Well, Non-toxic, No Acute Distress Skin: Negative for: Rash Eye Exam: Positive for: Normal appearance Cardiovascular/Chest: Positive for: Regular Rate, Rhythm Respiratory: Positive for: Normal Breath Sounds Extremity: Positive for: Normal ROM. Negative for: Pedal Edema, Calf Tenderness , Deformity, Swelling Neurologic/Psych: Positive for: Alert, Oriented, Gait (steady) - ECG O2 Sat by Pulse Oximetry: 100 Pulse Ox Interpretation: Normal Medical Decision Making Medical Decision Makin61 year old non-domiciled male with atraumatic bilateral leg pain Patient was offered pain medication but he declined. Patient is ambulatory with steady gait using cane which he uses at baseline. Patient is stable for discharge. Disposition - Clinical Impression Clinical Impression: Leg pain - Patient ED Disposition Is Patient to be Admitted: No Counseled Patient/Family Regarding: Diagnosis, Need For Followup - Disposition Referrals: [facility] [Outside] Disposition: Routine/Home Disposition Time: 23:38 Condition: STABLE Instructions: Leg Pain (ED) Forms: [employer] (Latvian)
== END 2017-04-07 00:03 | disposition home or self-care (01) ==
LOC: H.ER 21:58
DX: M79.606 Pain in leg, unspecified (principal)